=== PATIENT | female | born 1945 | race Caucasian/White ===

== ENCOUNTER 2025-03-29 22:42 | Inpatient (IN) | payer MEDICARE, BC ==
--- NOTE | 2025-03-29 23:07 | ED ---
General Adult HPI - General Chief complaint: Fall Stated complaint: Fall Time Seen by Provider: 03/29/25 22:53 Source: patient, EMS Mode of arrival: EMS Limitations: altered mental status - History of Present Illness Initial comments: This patient is a 79-year-old woman who is here to have evaluation for altered mental status and having fall in the shower. Most of the history comes from EMS who states that they were called to provide lift assistance for woman who had fallen in the shower. They were given history by the patient's believe [id number], who stated that the patient had been planning to have dinner with family tonight and then did not show up. They went to check on her and she seemed confused. She stated that she wanted to take a shower. She went into the bathroom and then fell and then was not able to get up. They had last seen her approximately 10-1/2 hours prior. EMS reported that the patient was not able to get up. She seemed confused. She did not have focal extremity weakness. When I interviewed the patient, she is denying complaints. She does seem confused, but is able to state that she is not having pain. No dyspnea. She has not had vomiting. -: unknown Severity scale (1-10): 0 Consistency: constant Improves with: none Associated Symptoms: confusion Treatments Prior to Arrival: none - Related Data Home Medications Medication Instructions Recorded Confirmed Levothyroxine Sodium [Synthroid] 75 mcg PO HS 03/30/25 03/30/25 Simvastatin [Zocor] 10 mg PO HS 03/30/25 03/30/25 Previous Rx's Medication Instructions Recorded Aspirin 81 mg PO DAILY 30 Days #30 tab 04/03/25 Losartan [Cozaar] 50 mg PO DAILY 30 Days #30 tab 04/03/25 amLODIPine [Norvasc] 10 mg PO DAILY 30 Days #30 tab 04/03/25 carvediloL [Coreg] 6.25 mg PO BID-W/MEALS 30 Days #60 04/03/25 tab Allergies Allergy/AdvReac Type Severity Reaction Status Date / Time No Known Allergies Allergy Verified 03/30/25 07:34 Review of Systems ROS Statement: Those systems with pertinent positive or pertinent negative responses have been documented in the HPI. ROS Other: All systems not noted in ROS Statement are negative. Limitations: ROS unobtainable due to patients medical condition Constitutional: Denies: fever Eyes: Denies: vision change Respiratory: Denies: cough, dyspnea Cardiovascular: Denies: chest pain Gastrointestinal: Denies: abdominal pain, vomiting Genitourinary: Denies: dysuria Musculoskeletal: Denies: back pain Neurological: Reports: confusion. Denies: headache Past Medical History Past Medical History: Unable to Obtain History of Any Multi-Drug Resistant Organisms: None Reported Past Surgical History: Unable to Obtain Past Psychological History: No Psychological Hx Reported Smoking Status: Never smoker Past Alcohol Use History: None Reported Past Drug Use History: None Reported General Exam Limitations: altered mental status General appearance: alert, in no apparent distress Head exam: Present: atraumatic, normocephalic Eye exam: Present: normal appearance. Absent: scleral icterus, conjunctival injection ENT exam: Present: normal oropharynx, mucous membranes moist Neck exam: Present: normal inspection, full ROM. Absent: tenderness, meningismus Respiratory exam: Present: normal lung sounds bilaterally. Absent: respiratory distress, wheezes, rales, rhonchi, stridor, chest wall tenderness, accessory muscle use Cardiovascular Exam: Present: regular rate, normal rhythm, normal heart sounds. Absent: systolic murmur, diastolic murmur, rubs, gallop GI/Abdominal exam: Present: soft. Absent: distended, tenderness, guarding, rebound, rigid, mass Extremities exam: Present: normal inspection, normal capillary refill. Absent: pedal edema, calf tenderness Back exam: Present: normal inspection. Absent: CVA tenderness (R), CVA tenderness (L), vertebral tenderness Neurological exam: Present: alert, CN II-XII intact. Absent: oriented X3 (The patient is oriented to person, she was able to recognize she is in a hospital, she cannot state the date.), motor sensory deficit Skin exam: Present: warm, dry, intact, normal color. Absent: rash Course Vital Signs 03/29/25 03/29/25 03/30/25 22:42 23:05 00:11 Temperature 99.0 F Pulse Rate 75 70 79 Pulse Rate [ Case Folder ] Respiratory 18 22 18 Rate Blood Pressure 126/73 129/64 169/73 Blood Pressure [Right Arm] O2 Sat by Pulse 100 100 100 Oximetry 03/30/25 03/30/25 03/30/25 01:12 02:00 06:00 Temperature Pulse Rate 80 85 78 Pulse Rate [ Case Folder ] Respiratory 18 16 17 Rate Blood Pressure 199/70 188/78 167/72 Blood Pressure [Right Arm] O2 Sat by Pulse 98 98 100 Oximetry 03/30/25 03/30/25 03/30/25 12:00 16:00 20:00 Temperature 98.8 F 98.7 F 97.9 F Pulse Rate Pulse Rate [ 70 65 56 L Case Folder ] Respiratory 17 19 18 Rate Blood Pressure Blood Pressure 162/57 150/55 118/54 [Right Arm] O2 Sat by Pulse 98 96 Oximetry 03/30/25 22:41 Temperature 98.0 F Pulse Rate Pulse Rate [ 68 Case Folder ] Respiratory 20 Rate Blood Pressure Blood Pressure 160/70 [Right Arm] O2 Sat by Pulse Oximetry EKG Findings - EKG Results: EKG: interpreted by ERMD, sinus rhythm (Rate 72 bpm), normal axis, normal ST/T - Blocks, [place], Hypertrophy, ST Abn: AV and intraventricular conduction: right bundle branch block (fixed/intermittent, complete/incomplete), left posterior fascicular block Medical Decision Making - Medical Decision Making The patient had chest x-ray that I interpreted as negative for acute infiltrate, pneumothorax, congestive heart failure. The patient had CT of the brain that I interpreted as negative for acute intracranial hemorrhage, mass effect or midline shift. Patient is 79-year-old woman here with altered mental status. The patient's initial workup remarkable only for mild elevation of troponin, elevated creatinine and also mild leukocytosis. The patient mental status has improved markedly and family member states she is pretty much at baseline. The patient is denying any symptoms suggestive of acute coronary syndrome. Patient will be admitted to have further evaluation as well as consultation by cardiology, neurology, nephrology. Was pt. sent in by a medical professional or institution (, PA, INVENTORY CONTROLLER, urgent care, hospital, or prison...) When possible be specific @ -[No] Did you speak to anyone other than the patient for history (EMS, parent, family, police, friend...)? What history was obtained from this source @ -[Patient's family member did contribute history as above Did you review nursing and triage notes (agree or disagree)? Why? @ -[I reviewed and agree with nursing and triage notes] Were old charts reviewed (outside hosp., previous admission, EMS record, old EKG, old radiological studies, urgent care reports/EKG's, prison records)? Report findings @ -[No old charts were reviewed] Differential Diagnosis (chest pain, altered mental status, abdominal pain women, abdominal pain men, vaginal bleeding, weakness, fever, dyspnea, syncope, headache, dizziness, GI bleed, back pain, seizure, CVA, palpatations, mental health, musculoskeletal)? @ -[Differential Altered Mental Status: Hypoglycemia, DKA, hypercapnia, ETOH, overdose, CO poisoning, trauma, myxedema coma, HTN encephalopathy, infection, encephalitis, psychosis, intercranial hemorrhage, hepatic encephalopathy, meningitis, CVA, this is not meant to be an all-inclusive list EKG interpreted by me (3pts min.). @ -[I interpreted as above] X-rays interpreted by me (1pt min.). @ -[I interpreted as above CT interpreted by me (1pt min.). @ -[I interpreted that as above U/S interpreted by me (1pt. min.). @ -[None done] What testing was considered but not performed or refused? (CT, X-rays, U/S, labs)? Why? @ -[None] What meds were considered but not given or refused? Why? @ -[None] Did you discuss the management of the patient with other professionals (professionals i.e. , PA, INVENTORY CONTROLLER, lab, RT, psych nurse, social media executive, buyer, teacher, employment security officer, manager of case management)? Give summary @ -[Case discussed with admitting physician and treatment recommendations Incorporated Was smoking cessation discussed for >3mins.? @ -[No] Was critical care preformed (if so, how long)? @ -[No] Were there social determinants of health that impacted care today? How? (Homelessness, low income, unemployed, alcoholism, drug addiction, transpo rtation, low edu. Level, literacy, decrease access to med. care, usp, rehab)? @ -[No] Was there de-escalation of care discussed even if they declined (Discuss DNR or withdrawal of care, Hospice)? DNR status @ -[No] What co-morbidities impacted this encounter? (DM, HTN, Smoking, COPD, CAD, Cancer, CVA, ARF, Chemo, Hep., AIDS, mental health diagnosis, sleep apnea, morbid obesity)? @ -[Hypertension and hypothyroidism Was patient admitted / discharged? Hospital course, mention meds given and rou te, prescriptions, significant lab abnormalities, going to OR and other pertinent info. @ -[As above Undiagnosed new problem with uncertain prognosis? @ -[No] Drug Therapy requiring intensive monitoring for toxicity (Heparin, Nitro, Insulin, Cardizem)? @ -[No] Were any procedures done? @ -[No] Diagnosis/symptom? @ -[Acute altered mental status Elevated troponin Acute kidney injury Acute, or Chronic, or Acute on Chronic? @ -[Acute Uncomplicated (without systemic symptoms) or Complicated (systemic symptoms)? @ -[Complicated by mental status change Side effects of treatment? @ -[No] Exacerbation, Progression, or Severe Exacerbation? @ -[No] Poses a threat to life or bodily function? How? (Chest pain, [place], [place], pneumonia, PE, COPD, DKA, ARF, appy, cholecystitis, CVA, Diverticulitis, Homicidal, Suicidal, threat to staff... and all critical care pts) @ -[Requires further specialist evaluation All treatments are based on ideal body weight as in ED triage - Lab Data Result diagrams: 04/01/25 06:06 04/03/25 07:22 Lab Results 03/29/25 03/29/25 03/29/25 Range/Units 23:08 23:08 23:08 WBC 12.14 H (4.50-10.00) 10*3/uL RBC 3.93 L (4.10-5.20) 10*6/uL Hgb 12.3 (12.0-15.0) g/dL Hct 35.4 L (37.2-46.3) % MCV 90.1 (80.0-97.0) fL MCH 31.3 (27.0-32.0) pg MCHC 34.7 (32.0-37.0) g/dL Plt Count 357 (140-440) 10*3/uL MPV 10.4 (9.5-12.2) fL Immature Gran % (Auto) 0.4 % Neutrophils % 83.2 % Lymphocytes % 7.6 % Monocytes % 8.2 % Eosinophils % 0.2 % Basophils % 0.4 % Immature Gran # 0.05 H (0.00-0.04) 10*3/uL Neutrophils # 10.11 H (1.80-7.70) 10*3/uL Lymphocytes # 0.92 (0.90-5.00) 10*3/uL Monocytes # 0.99 (0.20-1.00) 10*3/uL Eosinophils # 0.02 L (0.04-0.35) 10*3/uL Basophils # 0.05 (0.00-0.10) 10*3/uL PT 11.2 (10.0-12.5) sec INR 1.0 (<1.2) APTT 22.0 (22.0-30.0) sec Sodium 135 L (137-145) mmol/L Potassium 5.9 H (3.5-5.1) mmol/L Chloride 104 (98-107) mmol/L Carbon Dioxide 18 L (22-30) mmol/L Anion Gap 13 mmol/L BUN 47 H (7-17) mg/dL Creatinine 2.30 H (0.52-1.04) mg/dL Est GFR (CKD-EPI)AfAm 23 (>60 ml/min/1.73 sqM) Est GFR (CKD-EPI)NonAf 20 (>60 ml/min/1.73 sqM) Glucose 143 H (74-99) mg/dL POC Glucose (mg/dL) (70-110) mg/dL POC Glu Lead Manufacturing Technician ID Calcium 10.6 H (8.4-10.2) mg/dL Total Bilirubin 0.8 (0.2-1.3) mg/dL AST 32 (14-36) U/L ALT 21 (4-34) U/L Alkaline Phosphatase 82 (38-126) U/L Ammonia (<30) umol/L Creatine Kinase (30-135) U/L Troponin I (0.000-0.034) ng/mL Total Protein 7.2 (6.3-8.2) g/dL Albumin 4.2 (3.5-5.0) g/dL Urine Color Urine Appearance (Clear) Urine pH (5.0-8.0) Ur Specific [place] (1.001-1.035) Urine Protein (Negative) Urine Glucose (UA) (Negative) Urine Ketones (Negative) Urine Blood (Negative) Urine Nitrite (Negative) Urine Bilirubin (Negative) Urine Urobilinogen (<2.0) mg/dL Ur Leukocyte Esterase (Negative) Urine RBC (0-5) /hpf Urine WBC (0-5) /hpf Ur Squamous Epith Cells (0-4) /hpf Urine Bacteria (None) /hpf Hyaline Casts (0-2) /lpf Urine Mucus (None) /hpf Urine Opiates Screen (NotDetected) Ur Oxycodone Screen (NotDetected) Urine Methadone Screen (NotDetected) Ur Barbiturates Screen (NotDetected) U Tricyclic Antidepress (NotDetected) Ur Phencyclidine Scrn (NotDetected) Ur Amphetamines Screen (NotDetected) U Methamphetamines Scrn (NotDetected) U Benzodiazepines Scrn (NotDetected) Urine Cocaine Screen (NotDetected) U Marijuana (THC) Screen (NotDetected) Serum Alcohol <10 mg/dL 03/29/25 03/29/25 03/29/25 Range/Units 23:08 23:08 23:08 WBC (4.50-10.00) 10*3/uL RBC (4.10-5.20) 10*6/uL Hgb (12.0-15.0) g/dL Hct (37.2-46.3) % MCV (80.0-97.0) fL MCH (27.0-32.0) pg MCHC (32.0-37.0) g/dL Plt Count (140-440) 10*3/uL MPV (9.5-12.2) fL Immature Gran % (Auto) % Neutrophils % % Lymphocytes % % Monocytes % % Eosinophils % % Basophils % % Immature Gran # (0.00-0.04) 10*3/uL Neutrophils # (1.80-7.70) 10*3/uL Lymphocytes # (0.90-5.00) 10*3/uL Monocytes # (0.20-1.00) 10*3/uL Eosinophils # (0.04-0.35) 10*3/uL Basophils # (0.00-0.10) 10*3/uL PT (10.0-12.5) sec INR (<1.2) APTT (22.0-30.0) sec Sodium (137-145) mmol/L Potassium (3.5-5.1) mmol/L Chloride (98-107) mmol/L Carbon Dioxide (22-30) mmol/L Anion Gap mmol/L BUN (7-17) mg/dL Creatinine (0.52-1.04) mg/dL Est GFR (CKD-EPI)AfAm (>60 ml/min/1.73 sqM) Est GFR (CKD-EPI)NonAf (>60 ml/min/1.73 sqM) Glucose (74-99) mg/dL POC Glucose (mg/dL) (70-110) mg/dL POC Glu Lead Manufacturing Technician ID Calcium (8.4-10.2) mg/dL Total Bilirubin (0.2-1.3) mg/dL AST (14-36) U/L ALT (4-34) U/L Alkaline Phosphatase (38-126) U/L Ammonia <9 (<30) umol/L Creatine Kinase 425 H (30-135) U/L Troponin I 0.369 H* (0.000-0.034) ng/mL Total Protein (6.3-8.2) g/dL Albumin (3.5-5.0) g/dL Urine Color Urine Appearance (Clear) Urine pH (5.0-8.0) Ur Specific [place] (1.001-1.035) Urine Protein (Negative) Urine Glucose (UA) (Negative) Urine Ketones (Negative) Urine Blood (Negative) Urine Nitrite (Negative) Urine Bilirubin (Negative) Urine Urobilinogen (<2.0) mg/dL Ur Leukocyte Esterase (Negative) Urine RBC (0-5) /hpf Urine WBC (0-5) /hpf Ur Squamous Epith Cells (0-4) /hpf Urine Bacteria (None) /hpf Hyaline Casts (0-2) /lpf Urine Mucus (None) /hpf Urine Opiates Screen (NotDetected) Ur Oxycodone Screen (NotDetected) Urine Methadone Screen (NotDetected) Ur Barbiturates Screen (NotDetected) U Tricyclic Antidepress (NotDetected) Ur Phencyclidine Scrn (NotDetected) Ur Amphetamines Screen (NotDetected) U Methamphetamines Scrn (NotDetected) U Benzodiazepines Scrn (NotDetected) Urine Cocaine Screen (NotDetected) U Marijuana (THC) Screen (NotDetected) Serum Alcohol mg/dL 03/29/25 03/30/25 03/30/25 Range/Units 23:26 01:46 04:04 WBC (4.50-10.00) 10*3/uL RBC (4.10-5.20) 10*6/uL Hgb (12.0-15.0) g/dL Hct (37.2-46.3) % MCV (80.0-97.0) fL MCH (27.0-32.0) pg MCHC (32.0-37.0) g/dL Plt Count (140-440) 10*3/uL MPV (9.5-12.2) fL Immature Gran % (Auto) % Neutrophils % % Lymphocytes % % Monocytes % % Eosinophils % % Basophils % % Immature Gran # (0.00-0.04) 10*3/uL Neutrophils # (1.80-7.70) 10*3/uL Lymphocytes # (0.90-5.00) 10*3/uL Monocytes # (0.20-1.00) 10*3/uL Eosinophils # (0.04-0.35) 10*3/uL Basophils # (0.00-0.10) 10*3/uL PT (10.0-12.5) sec INR (<1.2) APTT (22.0-30.0) sec Sodium (137-145) mmol/L Potassium (3.5-5.1) mmol/L Chloride (98-107) mmol/L Carbon Dioxide (22-30) mmol/L Anion Gap mmol/L BUN (7-17) mg/dL Creatinine (0.52-1.04) mg/dL Est GFR (CKD-EPI)AfAm (>60 ml/min/1.73 sqM) Est GFR (CKD-EPI)NonAf (>60 ml/min/1.73 sqM) Glucose (74-99) mg/dL POC Glucose (mg/dL) 131 H (70-110) mg/dL POC Glu Lead Manufacturing Technician ID Desire Camille Calcium (8.4-10.2) mg/dL Total Bilirubin (0.2-1.3) mg/dL AST (14-36) U/L ALT (4-34) U/L Alkaline Phosphatase (38-126) U/L Ammonia (<30) umol/L Creatine Kinase (30-135) U/L Troponin I 2.940 H* (0.000-0.034) ng/mL Total Protein (6.3-8.2) g/dL Albumin (3.5-5.0) g/dL Urine Color Light Yellow Urine Appearance Clear (Clear) Urine pH 5.5 (5.0-8.0) Ur Specific [place] 1.015 (1.001-1.035) Urine Protein Trace H (Negative) Urine Glucose (UA) Negative (Negative) Urine Ketones Trace H (Negative) Urine Blood Moderate H (Negative) Urine Nitrite Negative (Negative) Urine Bilirubin Negative (Negative) Urine Urobilinogen <2.0 (<2.0) mg/dL Ur Leukocyte Esterase Negative (Negative) Urine RBC <1 (0-5) /hpf Urine WBC 1 (0-5) /hpf Ur Squamous Epith Cells <1 (0-4) /hpf Urine Bacteria Rare H (None) /hpf Hyaline Casts 13 H (0-2) /lpf Urine Mucus Rare H (None) /hpf Urine Opiates Screen Not Detected (NotDetected) Ur Oxycodone Screen Not Detected (NotDetected) Urine Methadone Screen Not Detected (NotDetected) Ur Barbiturates Screen Not Detected (NotDetected) U Tricyclic Antidepress Not Detected (NotDetected) Ur Phencyclidine Scrn Not Detected (NotDetected) Ur Amphetamines Screen Not Detected (NotDetected) U Methamphetamines Scrn Not Detected (NotDetected) U Benzodiazepines Scrn Not Detected (NotDetected) Urine Cocaine Screen Not Detected (NotDetected) U Marijuana (THC) Screen Not Detected (NotDetected) Serum Alcohol mg/dL Disposition Clinical Impression: Altered mental status, Elevated troponin, Acute kidney injury Disposition: ADMITTED IP TO THIS HOSP Condition: Stable Is patient prescribed a controlled substance at d/c from ED?: No
[2025-03-29 23:27] LABS: Glucose,Whole Blood 131 mg/dL (70-110)
[2025-03-29 23:35] LABS: Basophils # (A) 0.05 10*3/uL (0.00-0.10); Basophils % (A) 0.4 %; Eosinophils # (A) 0.02 10*3/uL (0.04-0.35); Eosinophils % (A) 0.2 %; HCT 35.4 % (37.2-46.3); HGB 12.3 g/dL (12.0-15.0); Lymphocytes # (A) 0.92 10*3/uL (0.90-5.00); Lymphocytes % (A) 7.6 %; MCH 31.3 pg (27.0-32.0); MCHC 34.7 g/dL (32.0-37.0); MCV 90.1 fL (80.0-97.0); Mean Platelet Volume 10.4 fL (9.5-12.2); Monocytes # (A) 0.99 10*3/uL (0.20-1.00); Monocytes % (A) 8.2 %; Neutrophils # (A) 10.11 10*3/uL (1.80-7.70); Neutrophils % (A) 83.2 %; Platelet Count 357 10*3/uL (140-440); RBC 3.93 10*6/uL (4.10-5.20); RDW 13.2 % (11.5-14.5); WBC 12.14 10*3/uL (4.50-10.00)
--- NOTE | 2025-03-29 23:51 | CT ---
EXAM: CT Head Without Intravenous Contrast CLINICAL HISTORY: ITS.REASON CT Reason: Altered mental status TECHNIQUE: Axial computed tomography images of the head/brain without intravenous contrast. CTDI is 49.2 mGy and DLP is 1098.4 mGy-cm. This CT exam was performed using one or more of the following dose reduction techniques: automated exposure control, adjustment of the mA and/or kV according to patient size, and/or use of iterative reconstruction technique. COMPARISON: No relevant prior studies available. FINDINGS: No acute intracranial hemorrhage. No midline shift or mass effect. The territorial cardona-white matter differentiation is maintained throughout. The ventricles and sulci are commensurate with age. The visualized orbits appear grossly unremarkable. The calvarium is intact. The visualized paranasal sinuses and mastoid air cells are grossly clear. IMPRESSION: No acute intracranial hemorrhage, midline shift, or mass effect.
[2025-03-29 23:53] LABS: Prothrombin Time 11.2 sec (10.0-12.5)
--- NOTE | 2025-03-29 23:53 | XR ---
EXAM: XR Chest, 2 Views CLINICAL HISTORY: ITS.REASON XR Reason: altered mental status TECHNIQUE: Frontal and lateral views of the chest. COMPARISON: No relevant prior studies available. FINDINGS: Lungs: Unremarkable. No consolidation. Pleural space: Unremarkable. No pneumothorax. Heart: Unremarkable. No cardiomegaly. Mediastinum: Unremarkable. Bones/joints: Unremarkable. IMPRESSION: No consolidation.
[2025-03-29 23:55] LABS: ALT 21 U/L (4-34); AST 32 U/L (14-36); African American GFR (CKD) 23 (>60 ml/min/1.73 sqM); Albumin 4.2 g/dL (3.5-5.0); Alcohol <10 mg/dL; Alkaline Phosphatase 82 U/L (38-126); Anion Gap 13 mmol/L; Blood Urea Nitrogen 47 mg/dL (7-17); Calcium 10.6 mg/dL (8.4-10.2); Carbon Dioxide 18 mmol/L (22-30); Chloride 104 mmol/L (98-107); Glucose 143 mg/dL (74-99); Non-African American GFR(CKD) 20 (>60 ml/min/1.73 sqM); Potassium 5.9 mmol/L (3.5-5.1); Sodium 135 mmol/L (137-145); Total Bilirubin 0.8 mg/dL (0.2-1.3); Total Protein 7.2 g/dL (6.3-8.2)
[2025-03-30] MEDS: SODIUM CHLORIDE 0.9% 500 ML 500 ML IV ONE (00:09)
[2025-03-30 03:33] LABS: Appearance,Urine Clear (Clear); Bacteria,Urine Rare /hpf; Bilirubin,Urine Negative (Negative); Blood,Urine Moderate (Negative); Color,Urine Light Yellow; Glucose,Urine (UA) Negative (Negative); Hyaline Casts,Urine 13 /lpf (0-2); Ketones,Urine Trace (Negative); Leukocyte Esterase,Urine Negative (Negative); Mucus,Urine Rare /hpf; Nitrite,Urine Negative (Negative); PH, Urine 5.5 (5.0-8.0); Protein,Urine Trace (Negative); RBC,Urine <1 /hpf (0-5); Specific Gravity,Urine 1.015 (1.001-1.035); Squamous Epithelial Cell,Urine <1 /hpf (0-4); Urobilinogen,Urine <2.0 mg/dL (<2.0); WBC,Urine 1 /hpf (0-5)
[2025-03-30 03:39] LABS: Amphetamine Screen,Urine Not Detected (NotDetected); Barbiturate Screen,Urine Not Detected (NotDetected); Benzodiazepines Screen,Urine Not Detected (NotDetected); Cocaine Screen,Urine Not Detected (NotDetected); Methadone Screen, Urine Not Detected (NotDetected); Opiate Screen,Urine Not Detected (NotDetected); Oxycodone Screen, Urine Not Detected (NotDetected); Phencyclidine Screen,Urine Not Detected (NotDetected); Tricyclic Antidepressant,Urine Not Detected (NotDetected); Urn Cannabinoid Scrn Not Detected (NotDetected)
[2025-03-30] MEDS ORDERED: NALOXONE 0.4 MG/ML 1 ML VIAL IV PRN (04:55)
[2025-03-30] MEDS ORDERED: ACETAMINOPHEN TAB 325 MG TAB PO PRN (04:55)
[2025-03-30] MEDS ORDERED: MAG HYDROX/AL HYDROX/SIMETH 30 ML CUP PO PRN (04:55)
[2025-03-30] MEDS ORDERED: HEPARIN SODIUM 1,000 UN/ML (10ML VL) IV PRN (05:36)
[2025-03-30] MEDS: SODIUM CHLORIDE 0.9% 1,000 ML IV SCH (05:46)
[2025-03-30] MEDS: HEPARIN SODIUM 1,000 UN/ML (10ML VL) IV ONE (05:49)
[2025-03-30] MEDS: HEPARIN SOD,PORK IN 0.45% NACL 25,000 UNIT in 0.45% NACL 1 250ML.BAG IV SCH (05:51)
[2025-03-30] MEDS ORDERED: FAMOTIDINE 20 MG TAB PO SCH (09:00)
[2025-03-30] MEDS: FAMOTIDINE 20 MG TAB PO SCH (10:47)
[2025-03-30] MEDS: lisinopriL 20 MG TAB PO SCH (10:47)
--- NOTE | 2025-03-30 11:00 | P.NPCON ---
History of Present Illness - Reason for Consult acute renal failure - History of Present Illness Patient is a 79-year-old female with history of hypertension, hypothyroidism and hyperlipidemia. She is admitted to the hospital with history of mental status changes, confusion and history of fall in the shower. EMS was called by her [id number] as they noticed that she had been confused. Patient apparently went into the shower and states that she passed out. She does not remember exactly what happened until she woke up with EMS. Blood pressure is not low Patient is maintained on JERMAIN inhibitors at home No history of nausea vomiting diarrhea or abdominal pain. No previous history of kidney diseases. Patient did admit to having taken NSAIDs few days ago for back pain. Serum creatinine is 2.3 mg/dL. Previous labs show serum creatinine of 1.3-1.6 in January and July 2024. Potassium was elevated at 5.9 mg/L. Currently maintained on IV fluids. Patient states she has been voiding well. Past Medical History Past Medical History: Unable to Obtain History of Any Multi-Drug Resistant Organisms: None Reported Past Surgical History: Unable to Obtain Past Psychological History: No Psychological Hx Reported Smoking Status: Never smoker Past Alcohol Use History: None Reported Past Drug Use History: None Reported Medications and Allergies Home Medications Medication Instructions Recorded Confirmed Type Benazepril HCl 40 mg PO HS 03/30/25 03/30/25 History Levothyroxine Sodium [Synthroid] 75 mcg PO HS 03/30/25 03/30/25 History Simvastatin [Zocor] 10 mg PO HS 03/30/25 03/30/25 History amLODIPine [Norvasc] 5 mg PO HS 03/30/25 03/30/25 History Allergies Allergy/AdvReac Type Severity Reaction Status Date / Time No Known Allergies Allergy Verified 03/30/25 07:34 Physical Exam Vitals: Vital Signs Temp Pulse Resp BP Pulse Ox 03/30/25 06:00 78 17 167/72 100 03/30/25 02:00 85 16 188/78 98 03/30/25 01:12 80 18 199/70 98 03/30/25 00:11 79 18 169/73 100 03/29/25 23:05 70 22 129/64 100 03/29/25 22:42 99.0 F 75 18 126/73 100 Intake and Output 03/29/25 03/30/25 03/30/25 22:59 06:59 14:59 Other: Weight 76 kg Patient is awake, comfortable, no acute distress. Examination of the heart S1 and S2 Examination of the lungs bilateral breath sounds are heard Abdomen is soft nontender Examination of lower extremities shows no evidence of edema SAAS ARCHITECT exam grossly intact Results - Lab Results Most recent lab results Calcium 10.6 mg/dL (8.4-10.2) H 03/29/25 23:08 03/29/25 23:08 03/29/25 23:08 Assessment and Plan Assessment: 1. Acute kidney injury, most likely ATN. UA shows moderate blood and trace protein. If renal function does not improve serologies will be ordered to rule out possible underlying acute GN. JERMAIN inhibitors on hold and patient is maintai ashli on IV fluids. 2. Chronic kidney disease stage III A most likely secondary to nephrosclerosis with baseline creatinine around 1.3 to 1.6 mg/dL 3. Syncope, undergoing workup. No evidence of hypotension 4. Hypertension maintained on JERMAIN inhibitors and calcium channel blockers 5. Hyperkalemia associated with acute kidney injury in the setting of use of JERMAIN inhibitors along with use of nonsteroidal anti-inflammatory agents 6. Nongap metabolic acidosis associated with acute kidney injury Plan: Change IV fluids to bicarb drip Discontinue Zestril Repeat labs in a.m. Check ultrasound of the kidneys Obtain serologies if renal function does not improve over the next 1 to 2 days. Thank you for the consultation. We will continue to follow the patient with you during her hospitalization.
[2025-03-30 11:22] LABS: Creatine Kinase 2471 U/L (30-135)
[2025-03-30] MEDS: DEXTROSE 5% IN WATER 1,000 ML with SODIUM BICARB (1 MEQ/ML) 150 ML IV SCH (11:28)
[2025-03-30] MEDS: carvediloL 6.25 MG TAB PO SCH (11:32)
[2025-03-30] MEDS: amLODIPine 5 MG TAB PO SCH (11:32)
--- NOTE | 2025-03-30 11:44 | P.CRDCN ---
History of Present Illness Consult date: 03/30/25 Reason for Consult (text): Elevated troponin History of present illness: This is 79-year-old female with past medical history of hypertension, hyperlipidemia, hypothyroidism. We have been asked to evaluate the patient for elevated troponins. 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 Patient states that she was in the shower and had a slip and fall. She states she sometimes gets dizzy when she gets up. She states she has been eating and drinking okay. She denies any fever or chills and no cough. Patient states that she was on the ground for about 4 hours. Patient states that she did have trouble with her memory but more so finding words and had a history of TIA years ago. She denies any chest pain or chest pressure. No pain into her neck or arms. She denies lower extremity edema. She denies history of smoking. No alc ohol abuse. Blood pressure 167/72, heart rate 78, pulse ox 100% on room air. Patient has been started on heparin drip and also was given dose of IV ceftriaxone. Patient seen in the ER waiting for bed on the cardiac stepdown unit. Dr. Madrigal discussed with patient findings and recommendations for a left heart catheterization but due to abnormal kidney function this will have to be carefully planned. Nephrology is on consult. -EKG: Sinus rhythm with right bundle branch block -Chest x-ray: No consolidation. -CT brain: No acute intracranial hemorrhage, midline shift or mass effect. -Laboratory studies: Troponin 0.369, 2.94. WBC 12.1, hemoglobin 12.3, sodium 135, potassium 5.9, BUN 47 creatinine 2.3. Urine drug screen negative. -Home cardiac medications: Amlodipine 5 mg at bedtime, benazepril 40 mg at bedtime, simvastatin 10 mg at bedtime, also on levothyroxine. Review Of Systems: At the time of my exam: CONSTITUTIONAL: Denies fever or chills. HEENT: Denies blurred vision, vision changes, or eye pain. Denies hemoptysis CARDIOVASCULAR: Denies chest pain. Denies orthopnea. Denies PND. Denies palpitations RESPIRATORY: Denies shortness of breath. GASTROINTESTINAL: Denies abdominal pain. Denies nausea or vomiting. HEMATOLOGIC: Denies bleeding disorders. GENITOURINARY: Denies any blood in urine. SKIN: Denies puritis. Denies rash. Physical examination: Gen: This is 79-year-old female in no acute distress VS: reviewed HEENT: Head is atraumatic, normocephalic. Pupils equal, round. Sclerae is anicteric. NECK: Supple. No JVD. Right sided carotid bruit. LUNGS: Clear to auscultation. No wheezes or rhonchi. No intercostal retractions. HEART: Regular rate and rhythm. No murmur. ABDOMEN: Soft No tenderness. EXTREMITIES: No pedal edema. No calf tenderness. NEUROLOGICAL: Patient is awake, alert and oriented x3. Assessment: NSTEMI Acute kidney injury Mental status changes with difficulty word finding Fall Rule out rhabdomyolysis Right-sided carotid bruit suspect carotid artery disease Hypertension Hyperlipidemia Hypothyroidism Plan: Resume patient's home cardiac medications and move to a.m. dosing Continue patient on heparin drip Obtain lipid panel, A1c, TSH, CK Obtain 2-D echocardiogram and Doppler study to assess cardiac structure and function Obtain carotid ultrasound Possible left heart catheterization once kidney function is improved Further recommendations to follow based upon clinical course Thank you kindly for this consultation. Nurse practitioner note has been reviewed, I agree with documented findings and plan of care. Patient was seen and examined. Past Medical History Past Medical History: Unable to Obtain History of Any Multi-Drug Resistant Organisms: None Reported Past Surgical History: Unable to Obtain Past Psychological History: No Psychological Hx Reported Smoking Status: Never smoker Past Alcohol Use History: None Reported Past Drug Use History: None Reported Medications and Allergies Home Medications Medication Instructions Recorded Confirmed Type Benazepril HCl 40 mg PO HS 03/30/25 03/30/25 History Levothyroxine Sodium [Synthroid] 75 mcg PO HS 03/30/25 03/30/25 History Simvastatin [Zocor] 10 mg PO HS 03/30/25 03/30/25 History amLODIPine [Norvasc] 5 mg PO HS 03/30/25 03/30/25 History Allergies Allergy/AdvReac Type Severity Reaction Status Date / Time No Known Allergies Allergy Verified 03/30/25 07:34 Physical Exam Vitals: Vital Signs Temp Pulse Resp BP Pulse Ox 03/30/25 06:00 78 17 167/72 100 03/30/25 02:00 85 16 188/78 98 03/30/25 01:12 80 18 199/70 98 03/30/25 00:11 79 18 169/73 100 03/29/25 23:05 70 22 129/64 100 03/29/25 22:42 99.0 F 75 18 126/73 100 Intake and Output 03/29/25 03/30/25 03/30/25 22:59 06:59 14:59 Other: Weight 76 kg Results 03/29/25 23:08 03/29/25 23:08 Cardiac Enzymes 03/29/25 03/29/25 03/30/25 Range/Units 23:08 23:08 04:04 AST 32 (14-36) U/L Troponin I 0.369 H* 2.940 H* (0.000-0.034) ng/mL Coagulation 03/29/25 Range/Units 23:08 PT 11.2 (10.0-12.5) sec APTT 22.0 (22.0-30.0) sec CBC 03/29/25 Range/Units 23:08 WBC 12.14 H (4.50-10.00) 10*3/uL RBC 3.93 L (4.10-5.20) 10*6/uL Hgb 12.3 (12.0-15.0) g/dL Hct 35.4 L (37.2-46.3) % Plt Count 357 (140-440) 10*3/uL Comprehensive Metabolic Panel 03/29/25 Range/Units 23:08 Sodium 135 L (137-145) mmol/L Potassium 5.9 H (3.5-5.1) mmol/L Chloride 104 (98-107) mmol/L Carbon Dioxide 18 L (22-30) mmol/L BUN 47 H (7-17) mg/dL Creatinine 2.30 H (0.52-1.04) mg/dL Glucose 143 H (74-99) mg/dL Calcium 10.6 H (8.4-10.2) mg/dL AST 32 (14-36) U/L ALT 21 (4-34) U/L Alkaline Phosphatase 82 (38-126) U/L Total Protein 7.2 (6.3-8.2) g/dL Albumin 4.2 (3.5-5.0) g/dL Current Medications Generic Name Dose Route Start Last Admin Trade Name Freq PRN Reason Stop Dose Admin Acetaminophen 650 mg 03/30/25 04:55 Acetaminophen Tab 325 Mg Tab PO Q6HR PRN Mild Pain or Fever > 100.5 Al Hydroxide/Mg Hydroxide 15 ml 03/30/25 04:55 Mag Hydrox/Al Hydrox/Simeth 30 Ml Cup PO Q6HR PRN Indigestion Famotidine 20 mg 03/30/25 09:00 Famotidine 20 Mg Tab PO BID TIO Heparin Sodium (Porcine) 0 unit 03/30/25 05:36 Heparin Sodium 1,000 Un/Ml (10ml Vl) IV PER PROTOCOL PRN Low PTT Protocol Sodium Chloride 1,000 mls @ 75 mls/hr 03/30/25 05:00 03/30/25 05:46 Saline 0.9% IV 75 mls/hr .[id number] TIO Administration Heparin Sodium/Sodium Chloride 250 mls @ 9.12 mls/hr 03/30/25 05:45 03/30/25 05:51 25,000 unit/ Sodium Chloride IV 12 units/kg/hr .Q24H TIO 9.12 mls/hr Administration Protocol 12 UNITS/KG/HR Naloxone HCl 0.2 mg 03/30/25 04:55 Naloxone 0.4 Mg/Ml 1 Ml Vial IV Q2M PRN Opioid Reversal Intake and Output 03/29/25 03/30/25 03/30/25 22:59 06:59 14:59 Other: Weight 76 kg 03/29/25 23:08 03/29/25 23:08
--- NOTE | 2025-03-30 14:49 | P.CNNES ---
History of Present Illness Consult date: 03/30/25 Requesting physician: Anuj Kinney Reason for Consult: altered mental status History of Present Illness: This is a 79-year-old woman who presents to the emergency department because of altered mental status. Patient [id number] is at bedside provide some of the history. Patient stated that yesterday she was in the shower and she fell out of the shower and she had the shower door and was on the bathroom floor for 4 hours and says she was weak. According to the [id number] the patient was supposed to be with over her house but she had not showed up so she was alarmed so she went to her house and had a copy of the zamora and then forced herself in the bathroom and she found that patient in the bathtub with the hot water running on her and she was not responsive. Per the [id number] the patient was not having any jerking of any extremity, rolling of her eyes or forced gaze deviation. Patient does not have any history of seizure. Patient does not have any tongue bite urinary or bowel incontinence during this episode. She does not recall what transpired. States she had a TIA in the past. She does have underlying diabetes mellitus, thiamine deficiency, thyroid issues, hypertension, hypercholesteremia. No history of cancer. Better today. Some of the workup during this hospital visit consisted of: Patient is afebrile Troponin got as high as high as 2.94 CK level is 425 Ammonia is less than 9 TSH is 1.[address] of the head is reported as no acute intracranial hemorrhage, midline shift or mass effect. I personally reviewed the CT and agree with the report. Review of Systems As per HPI. Past Medical History Past Medical History: Unable to Obtain History of Any Multi-Drug Resistant Organisms: None Reported Past Surgical History: Unable to Obtain Past Psychological History: No Psychological Hx Reported Smoking Status: Never smoker Past Alcohol Use History: None Reported Past Drug Use History: None Reported Medications and Allergies Home Medications Medication Instructions Recorded Confirmed Type Benazepril HCl 40 mg PO HS 03/30/25 03/30/25 History Levothyroxine Sodium [Synthroid] 75 mcg PO HS 03/30/25 03/30/25 History Simvastatin [Zocor] 10 mg PO HS 03/30/25 03/30/25 History amLODIPine [Norvasc] 5 mg PO HS 03/30/25 03/30/25 History Allergies Allergy/AdvReac Type Severity Reaction Status Date / Time No Known Allergies Allergy Verified 03/30/25 07:34 Physical Examination - Vital Signs Vital Signs: Vital Signs Temp Pulse Resp BP Pulse Ox 03/30/25 06:00 78 17 167/72 100 03/30/25 02:00 85 16 188/78 98 03/30/25 01:12 80 18 199/70 98 03/30/25 00:11 79 18 169/73 100 03/29/25 23:05 70 22 129/64 100 03/29/25 22:42 99.0 F 75 18 126/73 100 Intake and Output 03/29/25 03/30/25 03/30/25 22:59 06:59 14:59 Intake Total 54.264 Balance 54.264 Intake: Intake, IV Titration 54.264 Amount Heparin Sod,Pork in 0.45% 54.264 NaCl 25,000 unit In 0.45 % NaCl 1 250ml.bag @ 12 UNITS/KG/HR 9.12 mls/hr IV .Q24H [facility] Rx#: [id number] Other: Weight 76 kg GENERAL: The patient is lying in bed and is not in acute distress. NEUROLOGICAL: Higher mental function: The patient is awake, alert, oriented to self, place and time. Patient is following commands. No aphasia and no neglect. Cranial nerves: The pupils are round, equal and reactive to light and accommodation. Visual cook are full to confrontation throughout. Extraocular movement is intact no nystagmus is noted. Facial sensation is normal to touch throughout. The facial strength is normal throughout. Hearing is normal bilaterally to hand rub. Tongue is midline and moved [id number] without any difficulty. No dysarthria is noted. Shoulder shrug is normal bilaterally. Motor: The strength is 5 over 5 throughout. Normal tone and bulk. Cerebellum: Normal finger to nose bilaterally. Sensation: Sensation is normal to touch throughout. Reflexes (right/left):Refused because of pain. Plantars are mute bilaterally. Results - Laboratory Findings CBC and BMP: 03/29/25 23:08 03/29/25 23:08 Abnormal Lab Findings: Abnormal Labs 03/29/25 03/29/25 03/29/25 23:08 23:08 23:08 WBC 12.14 H RBC 3.93 L Hct 35.4 L Immature Gran # 0.05 H Neutrophils # 10.11 H Eosinophils # 0.02 L APTT Sodium 135 L Potassium 5.9 H Carbon Dioxide 18 L BUN 47 H Creatinine 2.30 H Glucose 143 H POC Glucose (mg/dL) Calcium 10.6 H Creatine Kinase Troponin I 0.369 H* Urine Protein Urine Ketones Urine Blood Urine Bacteria Hyaline Casts Urine Mucus 03/29/25 03/29/25 03/30/25 23:08 23:26 01:46 WBC RBC Hct Immature Gran # Neutrophils # Eosinophils # APTT Sodium Potassium Carbon Dioxide BUN Creatinine Glucose POC Glucose (mg/dL) 131 H Calcium Creatine Kinase 425 H Troponin I Urine Protein Trace H Urine Ketones Trace H Urine Blood Moderate H Urine Bacteria Rare H Hyaline Casts 13 H Urine Mucus Rare H 03/30/25 03/30/25 03/30/25 04:04 10:21 10:26 WBC RBC Hct Immature Gran # Neutrophils # Eosinophils # APTT 86.5 H Sodium Potassium Carbon Dioxide BUN Creatinine Glucose POC Glucose (mg/dL) Calcium Creatine Kinase 2471 H* Troponin I 2.940 H* Urine Protein Urine Ketones Urine Blood Urine Bacteria Hyaline Casts Urine Mucus Assessment and Plan Assessment: This is a 79-year-old woman who presents emergency department because of confusion. According to the ixzdbw-[id number]-grn she found her in the bathtub with a hot water running and she was not responding. In our ED her troponins elevated, she has acute kidney injury and CT of the head is unremarkable for any acute process. Altered mental status seems more metabolic encephalopathy. Rule out any acute or subacute stroke not seen on the CT especially with NSTEMI that can lead to strokes.--currently no focal deficit and mentation improved. NSTEMI Right sided carotid bruit rule out severe stenosis Acute kidney injury Hypertension Hyperlipidemia Hypothyroidism History of thiamine deficiency Plan: Carotid Duplex and 2D echo are ordered by the cardiology team I ordered MRI of the brain, EEG, Vitamin B12, folate level. Is on heparin drip started by ED team. Also is on lipitor. Nephrology is consulted Will defer the rest of the medical management to primary and other specialist Plan discussed with the patient and her [id number] who is at bedside Thank for the consultation Time with Patient: Greater than 30
--- NOTE | 2025-03-30 15:30 | US ---
EXAMINATION TYPE: US kidneys/renal and bladder DATE OF EXAM: 03/30/2025 COMPARISON: NONE CLINICAL INDICATION: Female, 79 years old with history of deejay; DEEJAY TECHNIQUE: Grayscale imaging of the bilateral kidneys and urinary bladder: FINDINGS: EXAM MEASUREMENTS: Right Kidney: 9.7x4.1x4.1 cm Left Kidney: 9.2x5.1x4.5 cm Right Kidney: No hydronephrosis or masses seen Left Kidney: No hydronephrosis or masses seen Bladder: wnl Bilateral Jets seen: Yes Incidental thickened endometrium up to 1.6cm IMPRESSION: 1. Normal renal ultrasound. 2. Prominent endometrial canal of 1.6 cm. Follow recommended. [facility], , 03/30/2025 3:27 PM
[2025-03-30 16:24] LABS: Chol/HDL Ratio 2.74 Ratio; LDL Cholesterol,Calculated 100.5 mg/dL (0.0-131.0); VLDL Calculation 14.96 mg/dL (5.00-40.00)
--- NOTE | 2025-03-30 17:04 | P.HPIM ---
History of Present Illness H&P Date: 03/30/25 Raiza Sneed, is a 79-year-old female who presented to [facility] emergency room with a chief complaint of mental status changes with confusion, patient states that she fell in the shower, at home, was not able to get up she was on the floor for 4 hours she was found by family member, when her family came in she was confused and was not able to recognize them, EMS were called and patient was brought into emergency room. She was evaluated in the emergency room vital examination on presentation revealed a temperature of 99.0 pulse 75 respiration 18 blood pressure 126/73 pu lse ox 100% on room air Laboratory data revealed a white blood count of 12.14 hemoglobin 12.3 platelet count 357 sodium 135 potassium 5.9 BUN 47 creatinine 2.3 troponin level 0.369 Testing in the emergency room revealed Patient was admitted to medical floor for further evaluation and treatment Past medical history is significant for On review of systems Past Medical History Past Medical History: Unable to Obtain History of Any Multi-Drug Resistant Organisms: None Reported Past Surgical History: Unable to Obtain Past Psychological History: No Psychological Hx Reported Smoking Status: Never smoker Past Alcohol Use History: None Reported Past Drug Use History: None Reported Medications and Allergies Home Medications Medication Instructions Recorded Confirmed Type Benazepril HCl 40 mg PO HS 03/30/25 03/30/25 History Levothyroxine Sodium [Synthroid] 75 mcg PO HS 03/30/25 03/30/25 History Simvastatin [Zocor] 10 mg PO HS 03/30/25 03/30/25 History amLODIPine [Norvasc] 5 mg PO HS 03/30/25 03/30/25 History Allergies Allergy/AdvReac Type Severity Reaction Status Date / Time No Known Allergies Allergy Verified 03/30/25 07:34 Physical Exam Vitals: Vital Signs Temp Pulse Resp BP Pulse Ox 03/30/25 06:00 78 17 167/72 100 03/30/25 02:00 85 16 188/78 98 03/30/25 01:12 80 18 199/70 98 03/30/25 00:11 79 18 169/73 100 03/29/25 23:05 70 22 129/64 100 03/29/25 22:42 99.0 F 75 18 126/73 100 Intake and Output 03/29/25 03/30/25 03/30/25 22:59 06:59 14:59 Other: Weight 76 kg In general patient is alert and oriented x 3 in no distress HEENT head normocephalic and atraumatic Neck is supple no JVD no goiter no lymphadenopathy no carotid bruit Chest examination is clear to auscultation no crackles no wheezing Cardiac exam reveals regular heart sounds S1 and S2 no gallops no murmurs Abdomen is soft nontender no organomegaly with normal bowel sounds Extremity exam reveals no edema no cyanosis or clubbing Neurological examination reveals no gross focal deficits Results CBC & Chem 7: 03/29/25 23:08 03/29/25 23:08 Labs: Abnormal Lab Results - Last 24 Hours (Table) 03/29/25 03/29/25 03/29/25 Range/Units 23:08 23:08 23:08 WBC 12.14 H (4.50-10.00) 10*3/uL RBC 3.93 L (4.10-5.20) 10*6/uL Hct 35.4 L (37.2-46.3) % Immature Gran # 0.05 H (0.00-0.04) 10*3/uL Neutrophils # 10.11 H (1.80-7.70) 10*3/uL Eosinophils # 0.02 L (0.04-0.35) 10*3/uL Sodium 135 L (137-145) mmol/L Potassium 5.9 H (3.5-5.1) mmol/L Carbon Dioxide 18 L (22-30) mmol/L BUN 47 H (7-17) mg/dL Creatinine 2.30 H (0.52-1.04) mg/dL Glucose 143 H (74-99) mg/dL POC Glucose (mg/dL) (70-110) mg/dL Calcium 10.6 H (8.4-10.2) mg/dL Creatine Kinase (30-135) U/L Troponin I 0.369 H* (0.000-0.034) ng/mL Urine Protein (Negative) Urine Ketones (Negative) Urine Blood (Negative) Urine Bacteria (None) /hpf Hyaline Casts (0-2) /lpf Urine Mucus (None) /hpf 03/29/25 03/29/25 03/30/25 Range/Units 23:08 23:26 01:46 WBC (4.50-10.00) 10*3/uL RBC (4.10-5.20) 10*6/uL Hct (37.2-46.3) % Immature Gran # (0.00-0.04) 10*3/uL Neutrophils # (1.80-7.70) 10*3/uL Eosinophils # (0.04-0.35) 10*3/uL Sodium (137-145) mmol/L Potassium (3.5-5.1) mmol/L Carbon Dioxide (22-30) mmol/L BUN (7-17) mg/dL Creatinine (0.52-1.04) mg/dL Glucose (74-99) mg/dL POC Glucose (mg/dL) 131 H (70-110) mg/dL Calcium (8.4-10.2) mg/dL Creatine Kinase 425 H (30-135) U/L Troponin I (0.000-0.034) ng/mL Urine Protein Trace H (Negative) Urine Ketones Trace H (Negative) Urine Blood Moderate H (Negative) Urine Bacteria Rare H (None) /hpf Hyaline Casts 13 H (0-2) /lpf Urine Mucus Rare H (None) /hpf 06// Range/Units 04:04 WBC (4.50-10.00) 10*3/uL RBC (4.10-5.20) 10*6/uL Hct (37.2-46.3) % Immature Gran # (0.00-0.04) 10*3/uL Neutrophils # (1.80-7.70) 10*3/uL Eosinophils # (0.04-0.35) 10*3/uL Sodium (137-145) mmol/L Potassium (3.5-5.1) mmol/L Carbon Dioxide (22-30) mmol/L BUN (7-17) mg/dL Creatinine (0.52-1.04) mg/dL Glucose (74-99) mg/dL POC Glucose (mg/dL) (70-110) mg/dL Calcium (8.4-10.2) mg/dL Creatine Kinase (30-135) U/L Troponin I 2.940 H* (0.000-0.034) ng/mL Urine Protein (Negative) Urine Ketones (Negative) Urine Blood (Negative) Urine Bacteria (None) /hpf Hyaline Casts (0-2) /lpf Urine Mucus (None) /hpf Assessment and Plan Plan: Acute kidney injury Underlying history of chronic kidney disease Underlying history of hypertension Underlying history of hyperlipidemia Acute metabolic acidosis Rhabdomyolysis Elevated troponin level Mental status changes with confusion This time patient was seen and examined Home medications reviewed and reordered Patient was started on IV heparin in the emergency room due to elevated troponin, continue at this time cardiology consultation was requested Patient was started on IV fluid with bicarb, urology consultation was requested Will continue to follow closely
--- NOTE | 2025-03-30 19:32 | US ---
EXAMINATION TYPE: US carotid duplex BILAT DATE OF EXAM: 03/30/2025 COMPARISON: NONE CLINICAL INDICATION: Female, 79 years old with history of syncope; syncope Additional History: R55 Syncope TECHNIQUE: Grayscale, color Doppler and spectral Doppler evaluation of the bilateral carotid systems and vertebral arteries. Indirect Doppler criteria was utilized. FINDINGS: EXAM MEASUREMENTS: RIGHT: Peak Systolic Velocity (PSV) cm/sec ----- Right CCA: 74.3 ----- Right ICA: 154.7 ----- Right ECA: 361.7 ICA/CCA ratio: 2.1 RIGHT: End Diastole cm/sec ----- Right CCA: 16.0 ----- Right ICA: 22.3 ----- Right ECA: 0.0 LEFT: Peak Systolic Velocity (PSV) cm/sec ----- Left CCA: 68.8 ----- Left ICA: 127.0 ----- Left ECA: 199.6 ICA/CCA ratio: 1.8 LEFT: End Diastole cm/sec ----- Left CCA: 11.7 ----- Left ICA: 20.4 ----- Left ECA: 18.4 VERTEBRALS (direction of flow): Right Vertebral: Antegrade Left Vertebral: Antegrade Rhythm: Normal CLIENT TECHNOLOGIES SPECIALIST NOTES: Plaque seen in bilateral bulbs. Right prox ICA appears elevated Color Doppler imaging shows patency with blood flow throughout the carotid artery. Spectral waveforms are within normal limits. IMPRESSION: Atheromatous plaquing present bilaterally. Narrowing less than 50% is present within the bilateral in ternal carotid arteries. There is some focal stenosis of the right external carotid artery Criteria for Assigning % of Stenosis / Diameter reduction (Estimation based on the indirect measurements of the internal carotid artery velocities (ICA PSV). 1. Normal (no stenosis)=ICA PSV < 180 cm/s: ratio < 2.0: ICA EDV<40 cm/s. 2. Less than 50% stenosis=ICA PSV < 180 cm/s: ratio < 2.0: ICA EDV<40 cm/s. 3. 50 to 69% stenosis=ICA PSV of 180 to 230 cm/s: ration 2.0 ? 4.0: ICA EDV 40-100 cm/s. PSV 125-180 cm/sec and ICA/CCA PSV Ratio ? 2.0 is also consistent with 50-69% stenosis 4. Greater than 70% stenosis to near occlusion= ICA PSV > 230 cm/s: ratio > 4.0: ICA EDV > 100 cm/s. 5. Near occlusion= ICA PSV velocities may be low or undetectable: variable ratio and ICA EDV. 6. Total occlusion=unable to detect flow. [facility], , 03/30/2025 7:30 PM
[2025-03-30] MEDS: ATORVASTATIN 10 MG TAB PO SCH (20:01)
[2025-03-30] MEDS: LEVOTHYROXINE 75 MCG TAB PO SCH (20:01)
[2025-03-30] MEDS ORDERED: lisinopriL 20 MG TAB PO SCH (21:00)
[2025-03-30] MEDS ORDERED: amLODIPine 5 MG TAB PO SCH (21:00)
[2025-03-30 23:17] LABS: Glucose,Whole Blood 99 mg/dL (70-110)
[2025-03-31 06:02] LABS: Glucose,Whole Blood 127 mg/dL (70-110)
[2025-03-31 06:57] LABS: Basophils # (A) 0.06 10*3/uL (0.00-0.10); Basophils % (A) 0.7 %; Eosinophils # (A) 0.27 10*3/uL (0.04-0.35); Eosinophils % (A) 3.4 %; HCT 35.2 % (37.2-46.3); HGB 11.7 g/dL (12.0-15.0); Lymphocytes # (A) 1.96 10*3/uL (0.90-5.00); Lymphocytes % (A) 24.4 %; MCH 30.2 pg (27.0-32.0); MCHC 33.2 g/dL (32.0-37.0); Mean Platelet Volume 10.5 fL (9.5-12.2); Monocytes # (A) 0.82 10*3/uL (0.20-1.00); Monocytes % (A) 10.2 %; Neutrophils # (A) 4.89 10*3/uL (1.80-7.70); Neutrophils % (A) 60.9 %; Platelet Count 332 10*3/uL (140-440); RBC 3.87 10*6/uL (4.10-5.20); RDW 13.5 % (11.5-14.5); WBC 8.03 10*3/uL (4.50-10.00)
[2025-03-31 07:09] LABS: Prothrombin Time 11.5 sec (10.0-12.5)
[2025-03-31 07:33] LABS: ALT 30 U/L (4-34); AST 75 U/L (14-36); African American GFR (CKD) 30 (>60 ml/min/1.73 sqM); Albumin 3.6 g/dL (3.5-5.0); Alkaline Phosphatase 90 U/L (38-126); Anion Gap 8 mmol/L; Blood Urea Nitrogen 37 mg/dL (7-17); Calcium 9.6 mg/dL (8.4-10.2); Carbon Dioxide 28 mmol/L (22-30); Chloride 100 mmol/L (98-107); Glucose 127 mg/dL (74-99); Non-African American GFR(CKD) 26 (>60 ml/min/1.73 sqM); Potassium 3.8 mmol/L (3.5-5.1); Sodium 136 mmol/L (137-145); Total Bilirubin 0.5 mg/dL (0.2-1.3); Total Protein 6.5 g/dL (6.3-8.2)
--- NOTE | 2025-03-31 11:11 | P.PN ---
Subjective Progress Note Date: 03/31/25 Raiza Sneed, is a 79-year-old female who presented to [facility] emergency room with a chief complaint of mental status changes with confusion, patient states that she fell in the shower, at home, was not able to get up she was on the floor for 4 hours she was found by family member, when her family came in she was confused and was not able to recognize them, EMS were called and patient was brought into emergency room. She was evaluated in the emergency room vital examination on presentation revealed a temperature of 99.0 pulse 75 respiration 18 blood pressure 126/73 pulse ox 100% on room air Laboratory data revealed a white blood count of 12.14 hemoglobin 12.3 platelet count 357 sodium 135 potassium 5.9 BUN 47 creatinine 2.3 troponin level 0.369 Testing in the emergency room revealed no acute intracranial hemorrhage midline shift or mass effect seen on CT of head. Chest x-ray showing no consolidation. Patient was admitted to medical floor for further evaluation and treatment Past medical history is significant for On review of systems On 03/31/2025 patient is alert and oriented x 3. Patient remains on heparin drip for elevated troponins. MRI and EEG has been ordered per neurology services 2D echo has been ordered.Carotid Doppler completed. Creatinine improving to 1.82 bun 37. Creatinine kindness 1325 this is trending down. Patient denies chest pain or shortness of breath. Patient denies nausea vomiting or diarrhea. Patient denies any urinary burning or frequency. Current vital signs temp 98.3, heart 73, respiratory rate 16, blood pressure 123/53 with pulse ox of 97% on room air Objective - Vital Signs Vital signs: Vital Signs Temp 98.3 F 03/31/25 07:37 Pulse 73 03/31/25 07:37 Resp 16 03/31/25 07:37 BP 123/53 03/31/25 07:37 Pulse Ox 97 03/31/25 07:37 FiO2 Intake & Output 03/30/25 03/31/25 03/31/25 18:59 06:59 18:59 Intake Total 694.264 388.38 Output Total 700 500 Balance 694.264 -700 -111.62 Weight 74 kg Intake: IV 640 Dextrose 5% in Water 1, 640 000 ml @ 80 mls/hr IV . [id number] TIO with Sodium Bicarb (1 Meq/ml) 150 ml Rx#:[id number] Intake, IV Titration 54.264 152.38 Amount Heparin Sod,Pork in 0.45% 54.264 152.38 NaCl 25,000 unit In 0.45 % NaCl 1 250ml.bag @ 12 UNITS/KG/HR 9.12 mls/hr IV .Q24H [facility] Rx#: [id number] Oral 236 Output: Urine 700 500 Other: Voiding Method Toilet Toilet # Voids 2 - Exam In general patient is alert and oriented x 3 in no distress HEENT head normocephalic and atraumatic Neck is supple no JVD no goiter no lymphadenopathy no carotid bruit Chest examination is clear to auscultation no crackles no wheezing Cardiac exam reveals regular heart sounds S1 and S2 no gallops no murmurs Abdomen is soft nontender no organomegaly with normal bowel sounds Extremity exam reveals no edema no cyanosis or clubbing Neurological examination reveals no gross focal deficits - Labs CBC & Chem 7: 03/31/25 05:29 03/31/25 05:36 Labs: Abnormal Lab Results - Last 24 Hours (Table) 03/30/25 03/30/25 03/30/25 Range/Units 10:21 10:21 10:26 RBC (4.10-5.20) 10*6/uL Hgb (12.0-15.0) g/dL Hct (37.2-46.3) % APTT 86.5 H (22.0-30.0) sec Sodium (137-145) mmol/L BUN (7-17) mg/dL Creatinine (0.52-1.04) mg/dL Glucose (74-99) mg/dL POC Glucose (mg/dL) (70-110) mg/dL Hemoglobin A1c 6.8 H (<=6.0) % AST (14-36) U/L Creatine Kinase 2471 H* (30-135) U/L HDL Cholesterol 66.50 H (40.00-60.00) mg/dL 03/30/25 03/31/25 03/31/25 Range/Units 17:07 05:29 05:29 RBC 3.87 L (4.10-5.20) 10*6/uL Hgb 11.7 L (12.0-15.0) g/dL Hct 35.2 L (37.2-46.3) % APTT 63.0 H 49.6 H (22.0-30.0) sec Sodium (137-145) mmol/L BUN (7-17) mg/dL Creatinine (0.52-1.04) mg/dL Glucose (74-99) mg/dL POC Glucose (mg/dL) (70-110) mg/dL Hemoglobin A1c (<=6.0) % AST (14-36) U/L Creatine Kinase (30-135) U/L HDL Cholesterol (40.00-60.00) mg/dL 03/31/25 03/31/25 03/31/25 Range/Units 05:36 05:36 06:00 RBC (4.10-5.20) 10*6/uL Hgb (12.0-15.0) g/dL Hct (37.2-46.3) % APTT (22.0-30.0) sec Sodium 136 L (137-145) mmol/L BUN 37 H (7-17) mg/dL Creatinine 1.82 H (0.52-1.04) mg/dL Glucose 127 H (74-99) mg/dL POC Glucose (mg/dL) 127 H (70-110) mg/dL Hemoglobin A1c (<=6.0) % AST 75 H (14-36) U/L Creatine Kinase 1325 H* (30-135) U/L HDL Cholesterol (40.00-60.00) mg/dL Assessment and Plan Plan: Acute kidney injury Underlying history of chronic kidney disease Underlying history of hypertension Underlying history of hyperlipidemia Acute metabolic acidosis Rhabdomyolysis Elevated troponin level Mental status changes with confusion This time patient was seen and examined Home medications reviewed and reordered Patient was started on IV heparin in the emergency room due to elevated troponin, continue at this time cardiology consultation was requested Patient was started on IV fluid with bicarb, neurology was requested MRI EEG and 2D echo ordered Carotid Doppler ordered and ultrasound renal bladder and kidneys Will continue to follow closely
[2025-03-31] MEDS: SODIUM CHLORIDE 0.9% 1,000 ML IV SCH (12:34)
[2025-03-31 12:35] LABS: Glucose,Whole Blood 109 mg/dL (70-110)
--- NOTE | 2025-03-31 14:47 | P.PN ---
Subjective Progress Note Date: 03/31/25 Reason for Consult (text): Elevated troponin History of present illness: This is 79-year-old female with past medical history of hypertension, hyperlipi demia, hypothyroidism. We have been asked to evaluate the patient for elevated troponins. 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 Patient states that she was in the shower and had a slip and fall. She states she sometimes gets dizzy when she gets up. She states she has been eating and drinking okay. She denies any fever or chills and no cough. Patient states that she was on the ground for about 4 hours. Patient states that she did have trouble with her memory but more so finding words and had a history of TIA years ago. She denies any chest pain or chest pressure. No pain into her neck or arms. She denies lower extremity edema. She denies history of smoking. No alcohol abuse. Blood pressure 167/72, heart rate 78, pulse ox 100% on room air. Patient has been started on heparin drip and also was given dose of IV ceftriaxone. Patient seen in the ER waiting for bed on the cardiac stepdown unit. Dr. Madrigal discussed with patient findings and recommendations for a left heart catheterization but due to abnormal kidney function this will have to be carefully planned. N ephrology is on consult. -EKG: Sinus rhythm with right bundle branch block -Chest x-ray: No consolidation. -CT brain: No acute intracranial hemorrhage, midline shift or mass effect. -Laboratory studies: Troponin 0.369, 2.94. WBC 12.1, hemoglobin 12.3, sodium 135, potassium 5.9, BUN 47 creatinine 2.3. Urine drug screen negative. -Home cardiac medications: Amlodipine 5 mg at bedtime, benazepril 40 mg at bedtime, simvastatin 10 mg at bedtime, also on levothyroxine. 03/31 Patient seen and examined on the cardiac stepdown unit. Blood pressure 156/69, heart rate 62, pulse ox 97% on room air. Repeat blood work reveals WBC 8, hemoglobin 9.7, sodium 136, BUN 37, creatinine 1.82, potassium 3.8. CK 1325. Echocardiogram is taken report is pending. Patient has been continued on heparin drip which we will decide whether this can be discontinued after the echocardiogram has been reported. Carotid ultrasound revealed narrowing less than 50% in bilateral internal carotid arteries. Triglycerides 74, cholesterol 182, LDL 100. TSH 1.37. Hemoglobin A1c is 6.8. Physical examination: Gen: This is 79-year-old female in no acute distress VS: reviewed HEENT: Head is atraumatic, normocephalic. Pupils equal, round. Sclerae is anicteric. NECK: Supple. No JVD. Right sided carotid bruit. LUNGS: Clear to auscultation. No wheezes or rhonchi. No intercostal retractions. HEART: Regular rate and rhythm. No murmur. ABDOMEN: Soft No tenderness. EXTREMITIES: No pedal edema. No calf tenderness. NEUROLOGICAL: Patient is awake, alert and oriented x3. Assessment: NSTEMI Acute kidney injury Mental status changes with difficulty word finding Fall Rhabdomyolysis Right-sided carotid bruit suspect carotid artery disease Hypertension Hyperlipidemia Hypothyroidism Plan: Resume patient's home cardiac medications and move to a.m. dosing Continue patient on heparin drip, will consider discontinuing once echocardiogram is reported Obtain 2-D echocardiogram and Doppler study to assess cardiac structure and function Possible left heart catheterization once kidney function is improved Further recommendations to follow based upon clinical course Nurse practitioner note has been reviewed, I agree with documented findings and plan of care. Patient was seen and examined. Objective - Vital Signs Vital signs: Vital Signs Temp 98.0 F 03/31/25 11:20 Pulse 62 03/31/25 11:20 Resp 18 03/31/25 11:20 BP 156/69 03/31/25 11:20 Pulse Ox 97 03/31/25 11:20 FiO2 Intake & Output 03/30/25 03/31/25 03/31/25 18:59 06:59 18:59 Intake Total 694.264 388.38 Output Total 700 500 Balance 694.264 -700 -111.62 Weight 74 kg Intake: IV 640 Dextrose 5% in Water 1, 640 000 ml @ 80 mls/hr IV . [id number] TIO with Sodium Bicarb (1 Meq/ml) 150 ml Rx#:[id number] Intake, IV Titration 54.264 152.38 Amount Heparin Sod,Pork in 0.45% 54.264 152.38 NaCl 25,000 unit In 0.45 % NaCl 1 250ml.bag @ 12 UNITS/KG/HR 9.12 mls/hr IV .Q24H TIO Rx#: [id number] Oral 236 Output: Urine 700 500 Other: Voiding Method Toilet Toilet # Voids 2 - Labs CBC & Chem 7: 03/31/25 05:29 03/31/25 05:36 Labs: Abnormal Lab Results - Last 24 Hours (Table) 03/30/25 03/30/25 03/30/25 Range/Units 10:21 10:21 17:07 RBC (4.10-5.20) 10*6/uL Hgb (12.0-15.0) g/dL Hct (37.2-46.3) % APTT 63.0 H (22.0-30.0) sec Sodium (137-145) mmol/L BUN (7-17) mg/dL Creatinine (0.52-1.04) mg/dL Glucose (74-99) mg/dL POC Glucose (mg/dL) (70-110) mg/dL Hemoglobin A1c 6.8 H (<=6.0) % AST (14-36) U/L Creatine Kinase 2471 H* (30-135) U/L HDL Cholesterol 66.50 H (40.00-60.00) mg/dL 03/31/25 03/31/25 03/31/25 Range/Units 05:29 05:29 05:36 RBC 3.87 L (4.10-5.20) 10*6/uL Hgb 11.7 L (12.0-15.0) g/dL Hct 35.2 L (37.2-46.3) % APTT 49.6 H (22.0-30.0) sec Sodium 136 L (137-145) mmol/L BUN 37 H (7-17) mg/dL Creatinine 1.82 H (0.52-1.04) mg/dL Glucose 127 H (74-99) mg/dL POC Glucose (mg/dL) (70-110) mg/dL Hemoglobin A1c (<=6.0) % AST 75 H (14-36) U/L Creatine Kinase (30-135) U/L HDL Cholesterol (40.00-60.00) mg/dL 03/31/25 03/31/25 Range/Units 05:36 06:00 RBC (4.10-5.20) 10*6/uL Hgb (12.0-15.0) g/dL Hct (37.2-46.3) % APTT (22.0-30.0) sec Sodium (137-145) mmol/L BUN (7-17) mg/dL Creatinine (0.52-1.04) mg/dL Glucose (74-99) mg/dL POC Glucose (mg/dL) 127 H (70-110) mg/dL Hemoglobin A1c (<=6.0) % AST (14-36) U/L Creatine Kinase 1325 H* (30-135) U/L HDL Cholesterol (40.00-60.00) mg/dL Microbiology - Last 24 Hours (Table) 03/30/25 01:46 Blood Culture - Preliminary Blood
[2025-03-31] MEDS: ASPIRIN 81 MG PO SCH (16:26)
[2025-03-31 16:27] LABS: Glucose,Whole Blood 135 mg/dL (70-110)
--- NOTE | 2025-03-31 17:32 | CA ---
Transthoracic Echo Report Name: Raiza Sneed Age: 79 Gender: F : 1945 Exam Date: 03/30/2025 10:24 Exam Location: [place] [facility] Ht (in): 66 Wt (lb): 167 Ordering Physician: Yaima Segovia Attending/Referring Phys: [id number], Luca Outsole Molder Amanda Villeda RDCS Procedure CPT: Indications: LVF Cardiac Hx: Technical Quality: Fair Contrast 1: Total Dose (mL): Contrast 2: Total Dose (mL): MEASUREMENTS (Male / Female) Normal Values 2D ECHO LV Diastolic Diameter PLAX 4.8 cm 4.2 - 5.9 / 3.9 - 5.3 cm LV Systolic Diameter PLAX 3.6 cm IVS Diastolic Thickness 1.1 cm 0.6 - 1.0 / 0.6 - 0.9 cm LVPW Diastolic Thickness 1.1 cm 0.6 - 1.0 / 0.6 - 0.9 cm LV Relative Wall Thickness 0.5 RV Internal Dim ED PLAX 2.5 cm LVOT Diameter 1.6 cm LA Systolic Diameter LX 3.4 cm 3.0 - 4.0 / 2.7 - 3.8 cm LV Diastolic Volume MOD BP 96.1 cm??? 67 - 155 / 56 - 104 cm??? LV Systolic Volume MOD BP 40.4 cm??? 22 - 58 / 19 - 49 cm??? LV Ejection Fraction MOD BP 57.9 % >= 55 % LV Cardiac Index MOD BP 2145.5 cm???/min???m??? LV Diastolic Volume MOD 4C 81.3 cm??? LV Systolic Volume MOD 4C 31.8 cm??? LV Ejection Fraction MOD 4C 60.9 % LV Cardiac Index MOD 4C 1906.7 cm???/min???m??? LV Diastolic Length 4C 8.4 cm LV Systolic Length 4C 6.9 cm LV Diastolic Volume MOD 2C 112.2 cm??? LV Systolic Volume MOD 2C 50.7 cm??? LV Ejection Fraction MOD 2C 54.8 % LV Cardiac Index MOD 2C 2367.8 cm???/min???m??? LV Diastolic Length 2C 8.2 cm LV Systolic Length 2C 6.6 cm LA Volume 33.6 cm??? 18 - 58 / 22 - 52 cm??? LA Volume Index 17.7 cm???/m??? 16 - 28 cm???/m??? DOPPLER MV Area PHT 2.8 cm??? Mitral E Point Velocity 79.8 cm/s Mitral A Point Velocity 137.2 cm/s Mitral E to A Ratio 0.6 MV Deceleration Time 272.5 ms TR Peak Velocity 146.5 cm/s TR Peak Gradient 8.6 mmHg FINDINGS Left Ventricle Left ventricular ejection fraction is estimated at 55-60%. Mildly increased septal wall thickness. Mildly increased posterior wall thickness. Normal left ventricular systolic function with no obvious regional wall motion abnormalities. Left ventricular cavity size normal. Right Ventricle Normal right ventricular size and function. Right ventricular systolic pressure within normal limits. Right Atrium Normal right atrial size. Left Atrium Normal left atrial size. Mitral Valve Mitral annular calcification. No mitral stenosis. No mitral regurgitation. Aortic Valve Trileaflet aortic valve. Diffuse thickening (sclerosis) of the aortic valve cusps without reduced excursion. No aortic regurgitation. Tricuspid Valve Structurally normal tricuspid valve. No tricuspid stenosis. Trace tricuspid regurgitation. Pulmonic Valve Pulmonic valve not well visualized. No pulmonic stenosis. Trace pulmonic regurgitation. Pericardium No pleural effusion. Aorta Normal size aortic root and proximal ascending aorta. CONCLUSIONS LVEF 55% Mild concentric LVH No obvious regional wall motion abnormality Normal RV size and systolic function. Normal RVSP No significant valvular dysfunction Previewed by: Dr Satnam Ely (Electronically Signed) Final Date: 31 March 2025 17:31
[2025-03-31 19:59] LABS: Glucose,Whole Blood 170 mg/dL (70-110)
--- NOTE | 2025-03-31 21:23 | EEG ---
ELECTROENCEPHALOGRAM REPORT CLINICAL HISTORY: This is a 79-year-old woman with altered mental status. The video EEG is obtained to evaluate for seizure epileptiform activity. RELEVANT MEDICATION: This patient is not on any antiseizure medication. EEG TYPE: This is a routine 21-channel EEG with video using the 10/20 electrode system. DESCRIPTION: Wakefulness is obtained. The background consists of [id number] voltage of 10 hertz activity intermixed with delta activity. There is no physiological stage 2 sleep architecture. There is no focal slowing. INTERICTAL AND ICTAL: None. ACTIVATION PROCEDURE: Photic stimulation did not evoke posterior driving response. There is no abnormality during the photic stimulation. Hyperventilation is not performed. CLINICAL INTERPRETATION: This is an abnormal routine EEG during awake state. The background slowing is suggestive of mild encephalopathy. There is no focal slowing, epileptiform discharge, or seizure on the EEG. A normal routine EEG does not rule out underlying epilepsy. Clinical correlation is recommended. DAILY / SUNNI: [id number] / MTDD
[2025-04-01 07:24] LABS: Basophils # (A) 0.05 10*3/uL (0.00-0.10); Basophils % (A) 0.7 %; Eosinophils # (A) 0.47 10*3/uL (0.04-0.35); HCT 35.1 % (37.2-46.3); HGB 11.5 g/dL (12.0-15.0); Lymphocytes # (A) 2.02 10*3/uL (0.90-5.00); Lymphocytes % (A) 29.9 %; MCH 30.4 pg (27.0-32.0); MCHC 32.8 g/dL (32.0-37.0); MCV 92.9 fL (80.0-97.0); Mean Platelet Volume 10.5 fL (9.5-12.2); Monocytes % (A) 10.4 %; Neutrophils % (A) 51.9 %; Platelet Count 317 10*3/uL (140-440); RBC 3.78 10*6/uL (4.10-5.20); RDW 13.3 % (11.5-14.5); WBC 6.75 10*3/uL (4.50-10.00)
[2025-04-01 07:42] LABS: ALT 29 U/L (4-34); AST 54 U/L (14-36); African American GFR (CKD) 41 (>60 ml/min/1.73 sqM); Albumin 3.5 g/dL (3.5-5.0); Alkaline Phosphatase 60 U/L (38-126); Anion Gap 8 mmol/L; Blood Urea Nitrogen 38 mg/dL (7-17); Calcium 9.2 mg/dL (8.4-10.2); Carbon Dioxide 26 mmol/L (22-30); Chloride 105 mmol/L (98-107); Glucose 119 mg/dL (74-99); Non-African American GFR(CKD) 35 (>60 ml/min/1.73 sqM); Potassium 4.6 mmol/L (3.5-5.1); Sodium 139 mmol/L (137-145); Total Bilirubin 0.5 mg/dL (0.2-1.3); Total Protein 6.3 g/dL (6.3-8.2)
[2025-04-01] MEDS: amLODIPine 10 MG TAB PO SCH (08:23)
--- NOTE | 2025-04-01 09:25 | P.PN ---
Subjective Progress Note Date: 04/01/25 Reason for Consult (text): Elevated troponin History of present illness: This is 79-year-old female with past medical history of hypertension, hyperlipi demia, hypothyroidism. We have been asked to evaluate the patient for elevated troponins. Patient does not follow with a marine architect. Patient states that she was in the shower and had a slip and fall. She states she sometimes gets dizzy when she gets up. She states she has been eating and drinking okay. She denies any fever or chills and no cough. Patient states that she was on the ground for about 4 hours. Patient states that she did have trouble with her memory but more so finding words and had a history of TIA years ago. She denies any chest pain or chest pressure. No pain into her neck or arms. She denies lower extremity edema. She denies history of smoking. No alcohol abuse. Blood pressure 167/72, heart rate 78, pulse ox 100% on room air. Patient has been started on heparin drip and also was given dose of IV ceftriaxone. Patient seen in the ER waiting for bed on the cardiac stepdown unit. Dr. Madrigal discussed with patient findings and recommendations for a left heart catheterization but due to abnormal kidney function this will have to be carefully planned. N ephrology is on consult. -EKG: Sinus rhythm with right bundle branch block -Chest x-ray: No consolidation. -CT brain: No acute intracranial hemorrhage, midline shift or mass effect. -Laboratory studies: Troponin 0.369, 2.94. WBC 12.1, hemoglobin 12.3, sodium 135, potassium 5.9, BUN 47 creatinine 2.3. Urine drug screen negative. -Home cardiac medications: Amlodipine 5 mg at bedtime, benazepril 40 mg at bedtime, simvastatin 10 mg at bedtime, also on levothyroxine. 03/31 Patient seen and examined on the cardiac stepdown unit. Blood pressure 156/69, heart rate 62, pulse ox 97% on room air. Repeat blood work reveals WBC 8, hemoglobin 9.7, sodium 136, BUN 37, creatinine 1.82, potassium 3.8. CK 1325. Echocardiogram is taken report is pending. Patient has been continued on heparin drip which we will decide whether this can be discontinued after the echocardiogram has been reported. Carotid ultrasound revealed narrowing less than 50% in bilateral internal carotid arteries. Triglycerides 74, cholesterol 182, LDL 100. TSH 1.37. Hemoglobin A1c is 6.8. 04/01 Patient seen and examined. Blood pressure readings have been elevated for which amlodipine will be increased. Patient is off heparin drip. Echocardiogram reveals EF of 55%, mild concentric LVH, no significant valvular dysfunction. Discussed possibility of cardiac catheterization or stress test. Patient does not seem to be interested in moving forward with this at this time. Her kidney function remains elevated. Today's lab work is not available at the time of this dictation. Physical examination: Gen: This is 79-year-old female in no acute distress VS: reviewed HEENT: Head is atraumatic, normocephalic. Pupils equal, round. Sclerae is anicteric. NECK: Supple. No JVD. Right sided carotid bruit. LUNGS: Clear to auscultation. No wheezes or rhonchi. No intercostal retractions. HEART: Regular rate and rhythm. No murmur. ABDOMEN: Soft No tenderness. EXTREMITIES: No pedal edema. No calf tenderness. NEUROLOGICAL: Patient is awake, alert and oriented x3. Assessment: NSTEMI Acute kidney injury Mental status changes with difficulty word finding Fall Rhabdomyolysis Right-sided carotid bruit suspect carotid artery disease Hypertension Hyperlipidemia Hypothyroidism Plan: Continue patient on aspirin, atorvastatin, Coreg Increase amlodipine to 10 mg daily for blood pressure control Possible left heart catheterization once kidney function is improved, or may consider stress testing Further recommendations to follow based upon clinical course Nurse practitioner note has been reviewed, I agree with documented findings and plan of care. Patient was seen and examined. Objective - Vital Signs Vital signs: Vital Signs Temp 98.0 F 04/01/25 04:00 Pulse 69 04/01/25 04:00 Resp 18 04/01/25 04:00 BP 149/69 04/01/25 04:00 Pulse Ox 95 04/01/25 04:00 FiO2 Intake & Output 03/31/25 04/01/25 04/01/25 18:59 06:59 18:59 Intake Total 829.853 Output Total 500 Balance 329.853 Weight 74 kg Intake: Intake, IV Titration 235.853 Amount Heparin Sod,Pork in 0.45% 235.853 NaCl 25,000 unit In 0.45 % NaCl 1 250ml.bag @ 12 UNITS/KG/HR 9.12 mls/hr IV .Q24H [facility] Rx#: [id number] Oral 594 Output: Urine 500 Other: Voiding Method Toilet Toilet # Voids 3 1 - Labs CBC & Chem 7: 04/01/25 06:06 04/01/25 06:06 Labs: Abnormal Lab Results - Last 24 Hours (Table) 03/31/25 03/31/25 03/31/25 Range/Units 05:36 05:36 16:25 Sodium 136 L (137-145) mmol/L BUN 37 H (7-17) mg/dL Creatinine 1.82 H (0.52-1.04) mg/dL Glucose 127 H (74-99) mg/dL POC Glucose (mg/dL) 135 H (70-110) mg/dL AST 75 H (14-36) U/L Creatine Kinase 1325 H* (30-135) U/L 03/31/25 Range/Units 19:58 Sodium (137-145) mmol/L BUN (7-17) mg/dL Creatinine (0.52-1.04) mg/dL Glucose (74-99) mg/dL POC Glucose (mg/dL) 170 H (70-110) mg/dL AST (14-36) U/L Creatine Kinase (30-135) U/L Microbiology - Last 24 Hours (Table) 03/30/25 01:46 Blood Culture - Preliminary Blood
--- NOTE | 2025-04-01 10:32 | P.PN ---
Subjective Progress Note Date: 04/01/25 Raiza Sneed, is a 79-year-old female who presented to [facility] emergency room with a chief complaint of mental status changes with confusion, patient states that she fell in the shower, at home, was not able to get up she was on the floor for 4 hours she was found by family member, when her family came in she was confused and was not able to recognize them, EMS were called and patient was brought into emergency room. She was evaluated in the emergency room vital examination on presentation revealed a temperature of 99.0 pulse 75 respiration 18 blood pressure 126/73 pulse ox 100% on room air Laboratory data revealed a white blood count of 12.14 hemoglobin 12.3 platelet count 357 sodium 135 potassium 5.9 BUN 47 creatinine 2.3 troponin level 0.369 Testing in the emergency room revealed no acute intracranial hemorrhage midline shift or mass effect seen on CT of head. Chest x-ray showing no consolidation. Patient was admitted to medical floor for further evaluation and treatment Past medical history is significant for On review of systems On 03/31/2025 patient is alert and oriented x 3. Patient remains on heparin drip for elevated troponins. MRI and EEG has been ordered per neurology services 2D echo has been ordered.Carotid Doppler completed. Creatinine improving to 1.82 bun 37. Creatinine kindness 1325 this is trending down. Patient denies chest pain or shortness of breath. Patient denies nausea vomiting or diarrhea. Patient denies any urinary burning or frequency. Current vital signs temp 98.3, heart 73, respiratory rate 16, blood pressure 123/53 with pulse ox of 97% on room air On 04/01/2025 patient is alert and oriented x 3. Patient denies chest pain or shortness of breath. Patient denies nausea vomiting or diarrhea. Patient denies any urinary burning or frequency. Current vital signs temp 98.0, heart 69, respiratory rate 18, blood pressure 149/69 with pulse ox of 95% on room air. Possible plans for heart catheterization per cardiology MRI still ordered per neurology. Creatinine 1.44 bun 38 Objective - Vital Signs Vital signs: Vital Signs Temp 98.0 F 04/01/25 08:17 Pulse 73 04/01/25 08:17 Resp 16 04/01/25 08:17 BP 164/62 04/01/25 08:17 Pulse Ox 98 04/01/25 08:17 FiO2 Intake & Output 03/31/25 04/01/25 04/01/25 18:59 06:59 18:59 Intake Total 829.853 236 Output Total 500 300 Balance 329.853 -64 Weight 74 kg Intake: Intake, IV Titration 235.853 Amount Heparin Sod,Pork in 0.45% 235.853 NaCl 25,000 unit In 0.45 % NaCl 1 250ml.bag @ 12 UNITS/KG/HR 9.12 mls/hr IV .Q24H [facility] Rx#: [id number] Oral 594 236 Output: Urine 500 300 Other: Voiding Method Toilet Toilet Toilet # Voids 3 1 - Exam In general patient is alert and oriented x 3 in no distress HEENT head normocephalic and atraumatic Neck is supple no JVD no goiter no lymphadenopathy no carotid bruit Chest examination is clear to auscultation no crackles no wheezing Cardiac exam reveals regular heart sounds S1 and S2 no gallops no murmurs Abdomen is soft nontender no organomegaly with normal bowel sounds Extremity exam reveals no edema no cyanosis or clubbing Neurological examination reveals no gross focal deficits - Labs CBC & Chem 7: 04/01/25 06:06 04/01/25 06:06 Labs: Abnormal Lab Results - Last 24 Hours (Table) 03/31/25 03/31/25 03/31/25 Range/Units 05:36 16:25 19:58 RBC (4.10-5.20) 10*6/uL Hgb (12.0-15.0) g/dL Hct (37.2-46.3) % Eosinophils # (0.04-0.35) 10*3/uL BUN (7-17) mg/dL Creatinine (0.52-1.04) mg/dL Glucose (74-99) mg/dL POC Glucose (mg/dL) 135 H 170 H (70-110) mg/dL AST (14-36) U/L Creatine Kinase 1325 H* (30-135) U/L 04/01/25 04/01/25 Range/Units 06:06 06:06 RBC 3.78 L (4.10-5.20) 10*6/uL Hgb 11.5 L (12.0-15.0) g/dL Hct 35.1 L (37.2-46.3) % Eosinophils # 0.47 H (0.04-0.35) 10*3/uL BUN 38 H (7-17) mg/dL Creatinine 1.44 H (0.52-1.04) mg/dL Glucose 119 H (74-99) mg/dL POC Glucose (mg/dL) (70-110) mg/dL AST 54 H (14-36) U/L Creatine Kinase (30-135) U/L Microbiology - Last 24 Hours (Table) 03/30/25 01:46 Blood Culture - Preliminary Blood Assessment and Plan Assessment: Acute kidney injury Underlying history of chronic kidney disease Underlying history of hypertension Underlying history of hyperlipidemia Acute metabolic acidosis Rhabdomyolysis Elevated troponin level Mental status changes with confusion This time patient was seen and examined Home medications reviewed and reordered Patient was started on IV heparin in the emergency room due to elevated troponi n, continue at this time cardiology consultation was requested Patient was started on IV fluid with bicarb, neurology was requested MRI EEG and 2D echo ordered Carotid Doppler ordered and ultrasound renal bladder and kidneys
[2025-04-01 11:23] LABS: Glucose,Whole Blood 144 mg/dL (70-110)
--- NOTE | 2025-04-01 14:44 | P.PN ---
Subjective Progress Note Date: 04/01/25 I am following up with the patient and she states she is doing well. No new neurological issues. Pending to have MRI later today. Objective - Vital Signs Vital signs: Vital Signs Temp 98.0 F 04/01/25 08:17 Pulse 62 04/01/25 11:33 Resp 18 04/01/25 11:33 BP 161/70 04/01/25 11:33 Pulse Ox 97 04/01/25 11:33 FiO2 Intake & Output 03/31/25 04/01/25 04/01/25 18:59 06:59 18:59 Intake Total 829.853 506 Output Total 500 300 Balance 329.853 206 Weight 74 kg Intake: Intake, IV Titration 235.853 Amount Heparin Sod,Pork in 0.45% 235.853 NaCl 25,000 unit In 0.45 % NaCl 1 250ml.bag @ 12 UNITS/KG/HR 9.12 mls/hr IV .Q24H [facility] Rx#: [id number] Oral 594 506 Output: Urine 500 300 Other: Voiding Method Toilet Toilet Toilet # Voids 3 1 - Exam GENERAL: The patient is sitting in a recliner chair and is not in acute distress. NEUROLOGICAL: Higher mental function: The patient is awake, alert, oriented to self, place and time. Patient is following commands. No aphasia and no neglect. Cranial nerves: The pupils are round, equal and reactive to light and accommodation. Visual cook are full to confrontation throughout. Extraocular movement is intact no nystagmus is noted. Facial sensation is normal to touch throughout. The facial strength is normal throughout. Hearing is normal bilaterally to hand rub. Tongue is midline and moved [id number] without any difficulty. No dysarthria is noted. Shoulder shrug is normal bilaterally. Motor: The strength is 5 over 5 throughout. Normal tone and bulk. Cerebellum: Normal finger to nose bilaterally. Sensation: Sensation is normal to touch throughout. Some of the workup during this hospital visit consisted of: Patient is afebrile Troponin got as high as high as 2.94 CK level is 425 Vitamin B12: 651 Serum folate: 17.1 Ammonia is less than 9 TSH is 1.370 Creatnine is 2.30--trending down CT of the head is reported as no acute intracranial hemorrhage, midline shift or mass effect. I personally reviewed the CT and agree with the report. Carotid duplex is reported as atheromatous plaquing present bilaterally. Narrowing less than 50% is present within the bilateral internal carotid artery. There are some focal stenosis of the right external carotid artery. EEG is abnormal. Background slowing is suggestive of mild encephalopathy. There is no focal slowing, OptiForm discharges or seizure on the EEG. 2D echo: LVEF 55%. - Labs CBC & Chem 7: 04/01/25 06:06 04/01/25 06:06 Labs: Abnormal Lab Results - Last 24 Hours (Table) 03/31/25 03/31/25 04/01/25 Range/Units 16:25 19:58 06:06 RBC 3.78 L (4.10-5.20) 10*6/uL Hgb 11.5 L (12.0-15.0) g/dL Hct 35.1 L (37.2-46.3) % Eosinophils # 0.47 H (0.04-0.35) 10*3/uL BUN (7-17) mg/dL Creatinine (0.52-1.04) mg/dL Glucose (74-99) mg/dL POC Glucose (mg/dL) 135 H 170 H (70-110) mg/dL AST (14-36) U/L 04/01/25 04/01/25 Range/Units 06:06 11:20 RBC (4.10-5.20) 10*6/uL Hgb (12.0-15.0) g/dL Hct (37.2-46.3) % Eosinophils # (0.04-0.35) 10*3/uL BUN 38 H (7-17) mg/dL Creatinine 1.44 H (0.52-1.04) mg/dL Glucose 119 H (74-99) mg/dL POC Glucose (mg/dL) 144 H (70-110) mg/dL AST 54 H (14-36) U/L Microbiology - Last 24 Hours (Table) 03/30/25 01:46 Blood Culture - Preliminary Blood Assessment and Plan Assessment: This is a 79-year-old woman who presents emergency department because of confusion. According to the [id number] she found her in the bathtub with a hot water running and she was not responding. In our ED her troponins elevated, she has acute kidney injury and CT of the head is unremarkable for any acute process. Altered mental status seems more metabolic encephalopathy. Rule out any acute or subacute stroke not seen on the CT especially with NSTEMI that can lead to strokes.--currently no focal deficit and mentation improved. EEG is negative for seizure or discharges. NSTEMI Right sided carotid bruit rule out severe stenosis Acute kidney injury--trending down Hypertension Hyperlipidemia Hypothyroidism History of thiamine deficiency Plan: Pending MRI Brain. Cardiology is on board and consider cath once kidney improve. Is on ASA 81mag and lipitor. Nephrology is consulted Will defer the rest of the medical management to primary and other specialist Plan discussed with the patient and her [id number] who is at bedside
--- NOTE | 2025-04-01 15:07 | P.PN ---
Subjective Patient is in for follow-up for acute kidney injury. Maintained on IV fluids. Renal function has improved with serum creatinine down to 1.8 mg/dL yesterday. Labs are pending from today No significant complaints Objective - Vital Signs Vital signs: Vital Signs Temp 98.0 F 04/01/25 08:17 Pulse 62 04/01/25 11:33 Resp 18 04/01/25 11:33 BP 161/70 04/01/25 11:33 Pulse Ox 97 04/01/25 11:33 FiO2 Intake & Output 03/31/25 04/01/25 04/01/25 18:59 06:59 18:59 Intake Total 829.853 506 Output Total 500 300 Balance 329.853 206 Weight 74 kg Intake: Intake, IV Titration 235.853 Amount Heparin Sod,Pork in 0.45% 235.853 NaCl 25,000 unit In 0.45 % NaCl 1 250ml.bag @ 12 UNITS/KG/HR 9.12 mls/hr IV .Q24H [facility] Rx#: [id number] Oral 594 506 Output: Urine 500 300 Other: Voiding Method Toilet Toilet Toilet # Voids 3 1 - Exam Patient is awake, comfortable No acute distress Examination of the heart S1 and S2 Examination of the lungs bilateral breath sounds are heard Abdomen is soft nontender Examination of lower extremities shows no significant edema [employer]MENT SERVICER exam grossly intact - Labs CBC & Chem 7: 04/01/25 06:06 04/01/25 06:06 Labs: Abnormal Lab Results - Last 24 Hours (Table) 03/31/25 03/31/25 04/01/25 Range/Units 16:25 19:58 06:06 RBC 3.78 L (4.10-5.20) 10*6/uL Hgb 11.5 L (12.0-15.0) g/dL Hct 35.1 L (37.2-46.3) % Eosinophils # 0.47 H (0.04-0.35) 10*3/uL BUN (7-17) mg/dL Creatinine (0.52-1.04) mg/dL Glucose (74-99) mg/dL POC Glucose (mg/dL) 135 H 170 H (70-110) mg/dL AST (14-36) U/L 06/06/25 06/06/25 Range/Units 06:06 11:20 RBC (4.10-5.20) 10*6/uL Hgb (12.0-15.0) g/dL Hct (37.2-46.3) % Eosinophils # (0.04-0.35) 10*3/uL BUN 38 H (7-17) mg/dL Creatinine 1.44 H (0.52-1.04) mg/dL Glucose 119 H (74-99) mg/dL POC Glucose (mg/dL) 144 H (70-110) mg/dL AST 54 H (14-36) U/L Microbiology - Last 24 Hours (Table) 03/30/25 01:46 Blood Culture - Preliminary Blood Assessment and Plan Assessment: 1. Acute kidney injury, most likely ATN. UA shows moderate blood and trace protein. If renal function does not continue to improve, serologies will be ordered to rule out possible underlying acute GN. JERMAIN inhibitors on hold and patient is maintained on IV fluids. Ultrasound does not show any evidence of obstruction 2. Chronic kidney disease stage III A most likely secondary to nephrosclerosis with baseline creatinine around 1.3 to 1.6 mg/dL 3. Syncope, undergoing workup. No evidence of hypotension 4. Hypertension maintained on JERMAIN inhibitors and calcium channel blockers 5. Hyperkalemia associated with acute kidney injury in the setting of use of JERMAIN inhibitors along with use of nonsteroidal anti-inflammatory agents 6. Nongap metabolic acidosis associated with acute kidney injury Plan: Continue with saline Follow-up on labs from today Repeat labs in a.m. Obtain serologies if renal function does not continue to improve over the next 1 to 2 days.
--- NOTE | 2025-04-01 15:55 | MR ---
INDICATION: Patient age:Female; 79 years old; Reason for study: ams; [facility]. COMPARISON: CT brain 03/29/2025. TECHNIQUE: Multi planar, multi sequence imaging was performed through the brain without the administr ation intravenous contrast. FINDINGS: Mild age-appropriate cerebral volume loss. The cardona-white junctions, ventricular system, basal cister ns appear unremarkable for patient age. Diffusion-weighted imaging shows no evidence of restricted di ffusion to suggest acute/subacute infarct. Intracranial arterial flow voids are maintained. Midline s tructures show no abnormality. Patchy areas of high T2/FLAIR signal intensity are seen within the per iventricular and subcortical white matter. Additional regions within the central hosea. The susceptibi lity weighted images do not reveal any evidence for micro-hemorrhage. The bone marrow signal is within normal limits. Minimal mucosal thickening of the inferior right maxi llary sinus. Mild mucosal thickening in the ethmoid sinuses. Minimal mucosal thickening of the fronta l sinuses. Bilateral aphakia. IMPRESSION: 1. No evidence of intracranial mass or acute/subacute infarct. 2. Nonspecific mild white matter changes, likely related to small vessel ischemic disease. Demyelinat ing disease, chronic migraines, vasculitis, Lyme disease are other considerations. [facility], , 04/01/2025 3:53 PM
--- NOTE | 2025-04-02 10:54 | P.PN ---
Subjective Progress Note Date: 04/02/25 Raiza Sneed, is a 79-year-old female who presented to [facility] emergency room with a chief complaint of mental status changes with confusion, patient states that she fell in the shower, at home, was not able to get up she was on the floor for 4 hours she was found by family member, when her family came in she was confused and was not able to recognize them, EMS were called and patient was brought into emergency room. She was evaluated in the emergency room vital examination on presentation revealed a temperature of 99.0 pulse 75 respiration 18 blood pressure 126/73 pulse ox 100% on room air Laboratory data revealed a white blood count of 12.14 hemoglobin 12.3 platelet count 357 sodium 135 potassium 5.9 BUN 47 creatinine 2.3 troponin level 0.369 Testing in the emergency room revealed no acute intracranial hemorrhage midline shift or mass effect seen on CT of head. Chest x-ray showing no consolidation. Patient was admitted to medical floor for further evaluation and treatment On 03/31/2025 patient is alert and oriented x 3. Patient remains on heparin drip for elevated troponins. MRI and EEG has been ordered per neurology services 2D echo has been ordered.Carotid Doppler completed. Creatinine improving to 1.82 bun 37. Creatinine kindness 1325 this is trending down. Patient denies chest pain or shortness of breath. Patient denies nausea vomiting or diarrhea. Patient denies any urinary burning or frequency. Current vital signs temp 98.3, heart 73, respiratory rate 16, blood pressure 123/53 with pulse ox of 97% on room air On 04/01/2025 patient is alert and oriented x 3. Patient denies chest pain or shortness of breath. Patient denies nausea vomiting or diarrhea. Patient denies any urinary burning or frequency. Current vital signs temp 98.0, heart 69, respiratory rate 18, blood pressure 149/69 with pulse ox of 95% on room air. Possible plans for heart catheterization per cardiology MRI still ordered per neurology. Creatinine 1.44 bun 38 04/02/2025 patient was seen and examined on the medical floor she is alert and o riented x 3 in no apparent distress, there is no fever or chills no headache or dizziness no chest pain no shortness of breath no cough no nausea or vomiting no abdominal pain no diarrhea no blood in the stools no burning with urination no frequency or urgency and no hematuria, function is improving gradually, are awaiting cardiology decision in regard to cardiac catheterization, continue to follow closely. Objective - Vital Signs Vital signs: Vital Signs Temp 98.2 F 04/02/25 03:55 Pulse 60 04/02/25 08:45 Resp 16 04/02/25 08:45 BP 151/54 04/02/25 08:45 Pulse Ox 94 L 04/02/25 08:45 FiO2 Intake & Output 04/01/25 04/02/25 04/02/25 18:59 06:59 18:59 Intake Total 624 240 Output Total 300 300 Balance 324 -300 240 Weight 74.1 kg Intake: Oral 624 240 Output: Urine 300 300 Other: Voiding Method Toilet Toilet Toilet # Voids 3 3 1 - Exam In general patient is alert and oriented x 3 in no distress HEENT head normocephalic and atraumatic Neck is supple no JVD no goiter no lymphadenopathy no carotid bruit Chest examination is clear to auscultation no crackles no wheezing Cardiac exam reveals regular heart sounds S1 and S2 no gallops no murmurs Abdomen is soft nontender no organomegaly with normal bowel sounds Extremity exam reveals no edema no cyanosis or clubbing Neurological examination reveals no gross focal deficits - Labs CBC & Chem 7: 04/01/25 06:06 04/01/25 06:06 Labs: Abnormal Lab Results - Last 24 Hours (Table) 04/01/25 Range/Units 11:20 POC Glucose (mg/dL) 144 H (70-110) mg/dL Microbiology - Last 24 Hours (Table) 03/30/25 01:46 Blood Culture - Preliminary Blood Assessment and Plan Plan: Acute kidney injury Underlying history of chronic kidney disease Underlying history of hypertension Underlying history of hyperlipidemia Acute metabolic acidosis Rhabdomyolysis Elevated troponin level Mental status changes with confusion This time patient was seen and examined Home medications reviewed and reordered Patient was started on IV heparin in the emergency room due to elevated troponin, continue at this time cardiology consultation was requested Patient was started on IV fluid with bicarb, neurology was requested MRI EEG and 2D echo ordered Carotid Doppler ordered and ultrasound renal bladder and kidneys Will continue to follow closely
--- NOTE | 2025-04-02 12:15 | P.PN ---
Subjective Patient is in for follow-up for acute kidney injury. Maintained on IV fluids. Renal function has improved with serum creatinine down to 1.4 Tolerating oral intake. No significant complaints Objective - Vital Signs Vital signs: Vital Signs Temp 98.2 F 04/02/25 03:55 Pulse 60 04/02/25 08:45 Resp 16 04/02/25 08:45 BP 151/54 04/02/25 08:45 Pulse Ox 94 L 04/02/25 08:45 FiO2 Intake & Output 04/01/25 04/02/25 04/02/25 18:59 06:59 18:59 Intake Total 624 240 Output Total 300 300 Balance 324 -300 240 Weight 74.1 kg Intake: Oral 624 240 Output: Urine 300 300 Other: Voiding Method Toilet Toilet Toilet # Voids 3 3 1 - Exam Patient is awake, comfortable No acute distress Examination of the heart S1 and S2 Examination of the lungs bilateral breath sounds are heard Abdomen is soft nontender Examination of lower extremities shows no 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 Acute kidney injury, most likely ATN. UA shows moderate blood and trace protein. No previous UA available for comparison. If renal function does not continue to improve, serologies will be ordered to rule out possible underlying acute GN. JERMAIN inhibitors on hold and patient is maintained on IV fluids. Ultrasound does not show any evidence of obstruction 2. Chronic kidney disease stage III A most likely secondary to nephrosclerosis with baseline creatinine around 1.3 to 1.6 mg/dL 3. Syncope, undergoing workup. No evidence of hypotension 4. Hypertension maintained on JERMAIN inhibitors and calcium channel blockers 5. Hyperkalemia associated with acute kidney injury in the setting of use of JERMAIN inhibitors along with use of nonsteroidal anti-inflammatory agents 6. Nongap metabolic acidosis associated with acute kidney injury Plan: Continue with saline Follow-up on labs from today Repeat labs in a.m. Obtain serologies if renal function does not continue to improve over the next 1 to 2 days.
[2025-04-02 13:59] LABS: African American GFR (CKD) 44 (>60 ml/min/1.73 sqM); Anion Gap 8 mmol/L; Blood Urea Nitrogen 30 mg/dL (7-17); Calcium 9.7 mg/dL (8.4-10.2); Carbon Dioxide 26 mmol/L (22-30); Chloride 107 mmol/L (98-107); Glucose 130 mg/dL (74-99); Non-African American GFR(CKD) 38 (>60 ml/min/1.73 sqM); Potassium 4.7 mmol/L (3.5-5.1); Sodium 141 mmol/L (137-145)
--- NOTE | 2025-04-02 15:34 | P.PN ---
Subjective Progress Note Date: 04/02/25 I am following with the patient and denies any new neurological issues. Objective - Vital Signs Vital signs: Vital Signs Temp 98.2 F 04/02/25 03:55 Pulse 66 04/02/25 12:00 Resp 16 04/02/25 12:00 BP 148/75 04/02/25 12:00 Pulse Ox 95 04/02/25 12:00 FiO2 Intake & Output 04/01/25 04/02/25 04/02/25 18:59 06:59 18:59 Intake Total 624 360 Output Total 300 300 800 Balance 324 -300 -440 Weight 74.1 kg Intake: Oral 624 360 Output: Urine 300 300 800 Other: Voiding Method Toilet Toilet Toilet # Voids 3 3 1 - Exam GENERAL: The patient is sitting in a recliner chair and is not in acute distress. NEUROLOGICAL: Higher mental function: The patient is awake, alert, oriented to self, place and time. Patient is following commands. No aphasia and no neglect. Cranial nerves: The pupils are round, equal and reactive to light and ac commodation. Visual cook are full to confrontation throughout. Extraocular movement is intact no nystagmus is noted. Facial sensation is normal to touch throughout. The facial strength is normal throughout. Hearing is normal bilaterally to hand rub. Tongue is midline and moved [id number] without any difficulty. No dysarthria is noted. Shoulder shrug is normal bilaterally. Motor: The strength is 5 over 5 throughout. Normal tone and bulk. Cerebellum: Normal finger to nose bilaterally. Sensation: Sensation is normal to touch throughout. Some of the workup during this hospital visit consisted of: Patient is afebrile Troponin got as high as high as 2.94 CK level is 425 Vitamin B12: 651 Serum folate: 17.1 Ammonia is less than 9 TSH is 1.370 Creatnine is 2.30--trending down CT of the head is reported as no acute intracranial hemorrhage, midline shift or mass effect. I personally reviewed the CT and agree with the report. Carotid duplex is reported as atheromatous plaquing present bilaterally. Narrowing less than 50% is present within the bilateral internal carotid artery. There are some focal stenosis of the right external carotid artery. EEG is abnormal. Background slowing is suggestive of mild encephalopathy. There is no focal slowing, OptiForm discharges or seizure on the EEG. 2D echo: LVEF 55%. MRI Brain: Is no evidence of intracranial mass or acute/subacute infarct. - Labs CBC & Chem 7: 04/01/25 06:06 04/02/25 13:08 Labs: Abnormal Lab Results - Last 24 Hours (Table) 04/02/25 Range/Units 13:08 BUN 30 H (7-17) mg/dL Creatinine 1.35 H (0.52-1.04) mg/dL Glucose 130 H (74-99) mg/dL Microbiology - Last 24 Hours (Table) 03/30/25 01:46 Blood Culture - Preliminary Blood Assessment and Plan Assessment: This is a 79-year-old woman who presents emergency department because of confusion. According to the [id number] she found her in the bathtub with a hot water running and she was not responding. In our ED her troponins elevated, she has acute kidney injury and CT of the head is unremarkable for any acute process. Altered mental status seems more metabolic encephalopathy--mentation improved EEG is negative for seizure or discharges. MRI Brain is negative for acute process. NSTEMI Right sided carotid bruit rule out severe stenosis Acute kidney injury--trending down Hypertension Hyperlipidemia Hypothyroidism History of thiamine deficiency Plan: Cardiology is on board and consider cath once kidney improve. Is on ASA 81mag and lipitor. Nephrology is consulted Will defer the rest of the medical management to primary and other specialist There is no further neurological work-up. Will sign off. Please reconsult if needed. Time with Patient: Less than 30
--- NOTE | 2025-04-02 18:59 | P.PN ---
Subjective Progress Note Date: 04/02/25 History of present illness: This is 79-year-old female with past medical history of hypertension, hyperl ipidemia, hypothyroidism. We have been asked to evaluate the patient for elevated troponins. 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 Patient states that she was in the shower and had a slip and fall. She states she sometimes gets dizzy when she gets up. She states she has been eating and d rinking okay. She denies any fever or chills and no cough. Patient states that she was on the ground for about 4 hours. Patient states that she did have trouble with her memory but more so finding words and had a history of TIA years ago. She denies any chest pain or chest pressure. No pain into her neck or arms. She denies lower extremity edema. She denies history of smoking. No alcohol abuse. Blood pressure 167/72, heart rate 78, pulse ox 100% on room air. Patient has been started on heparin drip and also was given dose of IV ceftriaxone. Patient seen in the ER waiting for bed on the cardiac stepdown unit. Dr. Madrigal discussed with patient findings and recommendations for a le ft heart catheterization but due to abnormal kidney function this will have to be carefully planned. Nephrology is on consult. -EKG: Sinus rhythm with right bundle branch block -Chest x-ray: No consolidation. -CT brain: No acute intracranial hemorrhage, midline shift or mass effect. -Laboratory studies: Troponin 0.369, 2.94. WBC 12.1, hemoglobin 12.3, sodium 135, potassium 5.9, BUN 47 creatinine 2.3. Urine drug screen negative. -Home cardiac medications: Amlodipine 5 mg at bedtime, benazepril 40 mg at bedtime, simvastatin 10 mg at bedtime, also on levothyroxine. 03/31 Patient seen and examined on the cardiac stepdown unit. Blood pressure 156/69, heart rate 62, pulse ox 97% on room air. Repeat blood work reveals WBC 8, hemoglobin 9.7, sodium 136, BUN 37, creatinine 1.82, potassium 3.8. CK 1325. Echocardiogram is taken report is pending. Patient has been continued on heparin drip which we will decide whether this can be discontinued after the echocardiogram has been reported. Carotid ultrasound revealed narrowing less than 50% in bilateral internal carotid arteries. Triglycerides 74, cholesterol 182, LDL 100. TSH 1.37. Hemoglobin A1c is 6.8. 04/01 Patient seen and examined. Blood pressure readings have been elevated for which amlodipine will be increased. Patient is off heparin drip. Echocardiogram reveals EF of 55%, mild concentric LVH, no significant valvular dysfunction. Discussed possibility of cardiac catheterization or stress test. Patient does not seem to be interested in moving forward with this at this time. Her kidney function remains elevated. Today's lab work is not available at the time of this dictation. 04/02/2025 Noticed to be slightly hypertensive. Denies any active chest pain chest pressure shortness of breath. Telemetry shows sinus rhythm Physical examination: Gen: This is 79-year-old female in no acute distress VS: reviewed HEENT: Head is atraumatic, normocephalic. Pupils equal, round. Sclerae is anicteric. NECK: Supple. No JVD. Right sided carotid bruit. LUNGS: Clear to auscultation. No wheezes or rhonchi. No intercostal re tractions. HEART: Regular rate and rhythm. No murmur. ABDOMEN: Soft No tenderness. EXTREMITIES: No pedal edema. No calf tenderness. NEUROLOGICAL: Patient is awake, alert and oriented x3. Assessment: Elevated troponin likely type II NSTEMI in setting of rhabdomyolysis and poor renal clearance Acute kidney injury Mental status changes with difficulty word finding Fall Rhabdomyolysis Right-sided carotid bruit suspect carotid artery disease Hypertension Hyperlipidemia Hypothyroidism Plan: Continue patient on aspirin, atorvastatin, Coreg Increase amlodipine to 10 mg daily for blood pressure control Consider outpatient stress testing Start losartan 50 mg daily for elevated blood pressure Monitor kidney function electrolytes tomorrow If kidney function electrolytes and blood pressure normal tomorrow, consider clearing from cardiology Objective - Vital Signs Vital signs: Vital Signs Temp 98.2 F 04/02/25 03:55 Pulse 66 04/02/25 17:14 Resp 16 04/02/25 17:14 BP 173/75 04/02/25 17:14 Pulse Ox 99 04/02/25 17:14 FiO2 Intake & Output 04/01/25 04/02/25 04/02/25 18:59 06:59 18:59 Intake Total 624 480 Output Total 731 626 9715 Balance 324 300 -920 Weight 74.1 kg Intake: Oral 624 480 Output: Urine 435 617 7705 Other: Voiding Method Toilet Toilet Toilet # Voids 3 3 1 - Labs CBC & Chem 7: 04/01/25 06:06 04/02/25 13:08 Labs: Abnormal Lab Results - Last 24 Hours (Table) 04/02/25 04/02/25 Range/Units 13:08 13:08 BUN 30 H (7-17) mg/dL Creatinine 1.35 H (0.52-1.04) mg/dL Glucose 130 H (74-99) mg/dL Magnesium 1.4 L (1.6-2.3) mg/dL Microbiology - Last 24 Hours (Table) 03/30/25 01:46 Blood Culture - Preliminary Blood
[2025-04-02] MEDS: LOSARTAN 50 MG TAB PO SCH (20:20)
[2025-04-03 08:19] LABS: African American GFR (CKD) 50 (>60 ml/min/1.73 sqM); Anion Gap 9 mmol/L; Blood Urea Nitrogen 23 mg/dL (7-17); Calcium 9.9 mg/dL (8.4-10.2); Carbon Dioxide 22 mmol/L (22-30); Chloride 110 mmol/L (98-107); Glucose 123 mg/dL (74-99); Non-African American GFR(CKD) 44 (>60 ml/min/1.73 sqM); Potassium 4.4 mmol/L (3.5-5.1); Sodium 141 mmol/L (137-145)
--- NOTE | 2025-04-03 09:11 | P.DS ---
Providers Date of admission: 03/30/25 04:58 Expected date of discharge: 04/03/25 Attending physician: Alexa Chapman Consults: 03/30/25 04:55 Consult Physician Routine Consulting Provider: Jake Painting Consult Reason/Comments: altered mental status Do you want consulting provider notified?: Yes Consult Physician Routine Consulting Provider: Madhu Holt Consult Reason/Comments: elevated troponin Do you want consulting provider notified?: Yes 03/30/25 06:44 Consult Physician Routine Consulting Provider: Melanie Gordon Consult Reason/Comments: acute kidney injury Do you want consulting provider notified?: Yes Primary care physician: Cyndi Gamboa Hospital Course: Discharge diagnosis Acute kidney injury Underlying history of chronic kidney disease Underlying history of hypertension Underlying history of hyperlipidemia Acute metabolic acidosis Rhabdomyolysis Elevated troponin level Mental status changes with confusion Hospital course Raiza Sneed, is a 79-year-old female who presented to [facility] emergency room with a chief complaint of mental status changes with confusion, patient states that she fell in the shower, at home, was not able to get up she was on the floor for 4 hours she was found by family member, when her family came in she was confused and was not able to recognize them, EMS were called and patient was brought into emergency room. She was evaluated in the emergency room vital examination on presentation revealed a temperature of 99.0 pulse 75 respiration 18 blood pressure 126/73 pulse ox 100% on room air Laboratory data revealed a white blood count of 12.14 hemoglobin 12.3 platelet count 357 sodium 135 potassium 5.9 BUN 47 creatinine 2.3 troponin level 0.369 Testing in the emergency room revealed no acute intracranial hemorrhage midline shift or mass effect seen on CT of head. Chest x-ray showing no consolidation. Patient was admitted to medical floor for further evaluation and treatment On 03/31/2025 patient is alert and oriented x 3. Patient remains on heparin drip for elevated troponins. MRI and EEG has been ordered per neurology services 2D echo has been ordered.Carotid Doppler completed. Creatinine improving to 1.82 bun 37. Creatinine kindness 1325 this is trending down. Patient denies chest pain or shortness of breath. Patient denies nausea vomiting or diarrhea. Patient denies any urinary burning or frequency. Current vital signs temp 98.3, heart 73, respiratory rate 16, blood pressure 123/53 with pulse ox of 97% on room air On 04/01/2025 patient is alert and oriented x 3. Patient denies chest pain or shortness of breath. Patient denies nausea vomiting or diarrhea. Patient denies any urinary burning or frequency. Current vital signs temp 98.0, heart 69, respiratory rate 18, blood pressure 149/69 with pulse ox of 95% on room air. Possible plans for heart catheterization per cardiology MRI still ordered per neurology. Creatinine 1.44 bun 38 04/02/2025 patient was seen and examined on the medical floor she is alert and oriented x 3 in no apparent distress, there is no fever or chills no headache or dizziness no chest pain no shortness of breath no cough no nausea or vomiting no abdominal pain no diarrhea no blood in the stools no burning with urination no frequency or urgency and no hematuria, function is improving gradually, are awaiting cardiology decision in regard to cardiac catheterization, continue to follow closely. On 04/03/2025 patient is alert and oriented x 3. Patient eager to be DC'd home. Creatinine today improving to1.21 and bun 23. Blood pressure also improved 134/76. Patient will be DC'd home follow-up with cardiology services for possible outpatient stress test. Patient was started on new blood pressure medications to follow-up with PCP for further management. Patient denies chest pain or shortness of breath. Patient denies nausea vomiting or diarrhea. Patient denies any urinary burning or frequency Patient Condition at Discharge: Stable Plan - Discharge Summary Discharge Rx Participant: Yes New Discharge Prescriptions: New carvediloL [Coreg] 6.25 mg PO BID-W/MEALS 30 Days #60 tab Losartan [Cozaar] 50 mg PO DAILY 30 Days #30 tab amLODIPine [Norvasc] 10 mg PO DAILY 30 Days #30 tab Aspirin 81 mg PO DAILY 30 Days #30 tab Continue Simvastatin [Zocor] 10 mg PO HS Levothyroxine Sodium [Synthroid] 75 mcg PO HS Discontinued amLODIPine [Norvasc] 5 mg PO HS Benazepril HCl 40 mg PO HS Discharge Medication List Levothyroxine Sodium [Synthroid] 75 mcg PO HS 03/30/25 [History] Simvastatin [Zocor] 10 mg PO HS 03/30/25 [History] Aspirin 81 mg PO DAILY 30 Days #30 tab 04/03/25 [Rx] Losartan [Cozaar] 50 mg PO DAILY 30 Days #30 tab 04/03/25 [Rx] amLODIPine [Norvasc] 10 mg PO DAILY 30 Days #30 tab 04/03/25 [Rx] carvediloL [Coreg] 6.25 mg PO BID-W/MEALS 30 Days #60 tab 04/03/25 [Rx] Follow up Appointment(s)/Referral(s): Cyndi Gamboa MD [Primary Care Provider] - 1-2 days Jono Madrigal DO [STAFF PHYSICIAN] - 1 Week Activity/Diet/Wound Care/Special Instructions: Activity as tolerated Diet heart healthy Discharge Disposition: HOME SELF-CARE
[2025-04-03] MEDS ORDERED: Magnesium Replacement Protocol 1 EACH MISC MISCELLANE PRN (09:36)
--- NOTE | 2025-04-03 09:59 | P.PN ---
Subjective Progress Note Date: 04/03/25 History of present illness: This is 79-year-old female with past medical history of hypertension, hyperl ipidemia, hypothyroidism. We have been asked to evaluate the patient for elevated troponins. 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 Patient states that she was in the shower and had a slip and fall. She states she sometimes gets dizzy when she gets up. She states she has been eating and d rinking okay. She denies any fever or chills and no cough. Patient states that she was on the ground for about 4 hours. Patient states that she did have trouble with her memory but more so finding words and had a history of TIA years ago. She denies any chest pain or chest pressure. No pain into her neck or arms. She denies lower extremity edema. She denies history of smoking. No alcohol abuse. Blood pressure 167/72, heart rate 78, pulse ox 100% on room air. Patient has been started on heparin drip and also was given dose of IV ceftriaxone. Patient seen in the ER waiting for bed on the cardiac stepdown unit. Dr. Madrigal discussed with patient findings and recommendations for a le ft heart catheterization but due to abnormal kidney function this will have to be carefully planned. Nephrology is on consult. -EKG: Sinus rhythm with right bundle branch block -Chest x-ray: No consolidation. -CT brain: No acute intracranial hemorrhage, midline shift or mass effect. -Laboratory studies: Troponin 0.369, 2.94. WBC 12.1, hemoglobin 12.3, sodium 135, potassium 5.9, BUN 47 creatinine 2.3. Urine drug screen negative. -Home cardiac medications: Amlodipine 5 mg at bedtime, benazepril 40 mg at bedtime, simvastatin 10 mg at bedtime, also on levothyroxine. 03/31 Patient seen and examined on the cardiac stepdown unit. Blood pressure 156/69, heart rate 62, pulse ox 97% on room air. Repeat blood work reveals WBC 8, hemoglobin 9.7, sodium 136, BUN 37, creatinine 1.82, potassium 3.8. CK 1325. Echocardiogram is taken report is pending. Patient has been continued on heparin drip which we will decide whether this can be discontinued after the echocardiogram has been reported. Carotid ultrasound revealed narrowing less than 50% in bilateral internal carotid arteries. Triglycerides 74, cholesterol 182, LDL 100. TSH 1.37. Hemoglobin A1c is 6.8. 04/01 Patient seen and examined. Blood pressure readings have been elevated for which amlodipine will be increased. Patient is off heparin drip. Echocardiogram reveals EF of 55%, mild concentric LVH, no significant valvular dysfunction. Discussed possibility of cardiac catheterization or stress test. Patient does not seem to be interested in moving forward with this at this time. Her kidney function remains elevated. Today's lab work is not available at the time of this dictation. 04/02/2025 Noticed to be slightly hypertensive. Denies any active chest pain chest pressure shortness of breath. Telemetry shows sinus rhythm 04/03/2025 Doing well from cardiovascular standpoint. Hemodynamically stable. Denies any lightheadedness dizziness. Blood pressure is better controlled with addition of losartan. Physical examination: HEENT: Head is atraumatic, normocephalic. Pupils equal, round. Sclerae is anicteric. NECK: Supple. No JVD. Right sided carotid bruit. LUNGS: Clear to auscultation. No wheezes or rhonchi. No intercostal retractions. HEART: Regular rate and rhythm. No murmur. ABDOMEN: Soft No tenderness. EXTREMITIES: No pedal edema. No calf tenderness. NEUROLOGICAL: Patient is awake, alert and oriented x3. Assessment: Elevated troponin likely type II NSTEMI in setting of rhabdomyolysis and poor renal clearance Acute kidney injury Mental status changes with difficulty word finding Fall Rhabdomyolysis Right-sided carotid bruit suspect carotid artery disease Hypertension Hyperlipidemia Hypothyroidism Plan: Continue patient on aspirin, atorvastatin, Coreg Increase amlodipine to 10 mg daily for blood pressure control Consider outpatient stress testing Started losartan 50 mg daily for elevated blood pressure Consider event monitor and a Lexiscan nuclear stress test on outpatient basis Follow with Dr. Madrigal. Cleared from cardiovascular standpoint at this time Objective - Vital Signs Vital signs: Vital Signs Temp 97.9 F 04/03/25 07:37 Pulse 58 L 04/03/25 07:37 Resp 20 04/03/25 07:37 BP 134/76 04/03/25 07:37 Pulse Ox 97 04/03/25 07:37 FiO2 Intake & Output 04/02/25 04/03/25 04/03/25 18:59 06:59 18:59 Intake Total 480 240 Output Total 1400 300 600 Balance -920 -300 -360 Weight 76.7 kg Intake: Oral 480 240 Output: Urine 1400 300 600 Other: Voiding Method Toilet Toilet # Voids 1 3 - Labs CBC & Chem 7: 04/01/25 06:06 04/03/25 07:22 Labs: Abnormal Lab Results - Last 24 Hours (Table) 04/02/25 04/02/25 04/03/25 Range/Units 13:08 13:08 07:22 Chloride 110 H (98-107) mmol/L BUN 30 H 23 H (7-17) mg/dL Creatinine 1.35 H 1.21 H (0.52-1.04) mg/dL Glucose 130 H 123 H (74-99) mg/dL Magnesium 1.4 L (1.6-2.3) mg/dL 04/03/25 Range/Units 07:22 Chloride (98-107) mmol/L BUN (7-17) mg/dL Creatinine (0.52-1.04) mg/dL Glucose (74-99) mg/dL Magnesium 1.3 L (1.6-2.3) mg/dL Microbiology - Last 24 Hours (Table) 03/30/25 01:46 Blood Culture - Preliminary Blood
[2025-04-03] MEDS: MAGNESIUM SULFATE-D5W PMX 1 GM in DEXTROSE/WATER 1 100ML.BAG IVPB SCH (10:11)
[2025-04-03 11:27] VITALS: RESP 16
--- NOTE | 2025-04-03 12:36 | P.PN ---
Subjective Patient is in for follow-up for acute kidney injury. Maintained on IV fluids. Renal function has improved with serum creatinine down to 1.2 Tolerating oral intake. No significant complaints Objective - Vital Signs Vital signs: Vital Signs Temp 98.2 F 04/03/25 11:26 Pulse 58 L 04/03/25 11:26 Resp 16 04/03/25 11:26 BP 167/58 04/03/25 11:26 Pulse Ox 100 04/03/25 11:26 FiO2 Intake & Output 04/02/25 04/03/25 04/03/25 18:59 06:59 18:59 Intake Total 480 370 Output Total 1400 300 600 Balance -920 -300 -230 Weight 76.7 kg Intake: IV 10 Invasive Line 2 10 Oral 480 360 Output: Urine 1400 300 600 Other: Voiding Method Toilet Toilet Toilet # Voids 1 3 - Exam Patient is awake, comfortable No acute distress Examination of the heart S1 and S2 Examination of the lungs bilateral breath sounds are heard Abdomen is soft nontender Examination of lower extremities shows 1+ edema BUILDING SERVICES COORDINATOR exam grossly intact - Labs CBC & Chem 7: 04/01/25 06:06 04/03/25 07:22 Labs: Abnormal Lab Results - Last 24 Hours (Table) 04/02/25 04/02/25 04/03/25 Range/Units 13:08 13:08 07:22 Chloride 110 H (98-107) mmol/L BUN 30 H 23 H (7-17) mg/dL Creatinine 1.35 H 1.21 H (0.52-1.04) mg/dL Glucose 130 H 123 H (74-99) mg/dL Magnesium 1.4 L (1.6-2.3) mg/dL 04/03/25 Range/Units 07:22 Chloride (98-107) mmol/L BUN (7-17) mg/dL Creatinine (0.52-1.04) mg/dL Glucose (74-99) mg/dL Magnesium 1.3 L (1.6-2.3) mg/dL Microbiology - Last 24 Hours (Table) 03/30/25 01:46 Blood Culture - Preliminary Blood Assessment and Plan Assessment: 1. Acute kidney injury, most likely ATN. UA shows moderate blood and trace protein. No previous UA available for comparison. JERMAIN inhibitors on hold and patient is maintained on IV fluids. Ultrasound does not show any evidence of obstruction 2. Chronic kidney disease stage III A most likely secondary to nephrosclerosis with baseline creatinine around 1.3 to 1.6 mg/dL 3. Syncope, undergoing workup. No evidence of hypotension 4. Hypertension maintained on JERMAIN inhibitors and calcium channel blockers 5. Hyperkalemia associated with acute kidney injury in the setting of use of JERMAIN inhibitors along with use of nonsteroidal anti-inflammatory agents 6. Nongap metabolic acidosis associated with acute kidney injury Plan: DC IV fluids Stable for discharge from nephrology standpoint. Follow-up as outpatient for CKD
[2025-04-03] MEDS: FUROSEMIDE 10 MG/ML 4 ML VIAL IV ONE (12:48)
[2025-04-03 15:17] VITALS: BP 152/75; PULSE 51; TEMP 97.9
--- NOTE | 2025-04-14 09:45 | CDI ---
Documentation Clarification Form Date: 04/14/2025 09:31:42 AM From: Sujatha Ochoa Phone: Admit Date: 03/30/2025 04:58:00 AM Patient Name: Raiza Sneed Visit Number: [id number] Discharge Date: 04/03/2025 03:59:00 PM ATTENTION: The Clinical Documentation Specialists (CDI) and [facility] Coding Staff appreciate your assistance in clarifying documentation. Please respond to the clarification below the line at the bottom and electronically sign. The CDI & [facility] Coding staff will review the response and follow-up if needed. Please note: Queries are made part of the Legal Health Record. If you have any questions, please contact the author of this message via ITS. Doctor/Provider: Alexa Chapman Rhabdomyolysis is documented throughout the Progress Notes. Additional clarification regarding the type of rhabdomyolysis is requested. History/Risk Factors: 79yo F, DEEJAY, DMII w CKD IIIA, HTN, HLD, acute metabolic acidosis, rhabdo, met enceph, NSTEMII, syncope in shower at home Clinical Indicatorsmental status changes,confusionandhistory of fallin the shower. EMS was called by her [id number] as they noticed that she had beenconfused. Patient apparently went into the shower and states that she passed out. She does not remember exactly what happened until she woke up with EMS. Bloodpressureis not low. Patient is maintained on JERMAIN inhibitors at home Treatment: monitored Please clarify the type of rhabdomyolysis, if known: [ xxx] Traumatic rhabdomyolysis due to fall [ ] Traumatic rhabdomyolysis due to prolonged immobility [ ] Non traumatic rhabdomyolysis due to medication (please specify) [ ] Other, please specify [ ] Unable to Determine (Template Last Revised: December 2020) MTDD
== END 2025-04-03 15:59 | disposition home or self-care (01) | DRG 682 ==
LOC: EC 22:42 → 3SCARD 03-30 04:58
PROVIDERS: ADMIT Internal Medicine; ATTEND Internal Medicine
DX: N17.0 Acute kidney failure with tubular necrosis (principal); G93.41 Metabolic encephalopathy; I21.A1 Myocardial infarction type 2; E87.21 Acute metabolic acidosis; T79.6XXA Traumatic ischemia of muscle, initial encounter; N18.31 Chronic kidney disease, stage 3a; E11.22 Type 2 diabetes mellitus with diabetic chronic kidney disease; I12.9 Hypertensive chronic kidney disease with stage 1 through stage 4 chronic kidney disease, or unspecified chronic kidney disease; E03.9 Hypothyroidism, unspecified; I65.21 Occlusion and stenosis of right carotid artery; E51.9 Thiamine deficiency, unspecified; E87.5 Hyperkalemia; E78.00 Pure hypercholesterolemia, unspecified; R09.89 Other specified symptoms and signs involving the circulatory and respiratory systems; W18.2XXA Fall in (into) shower or empty bathtub, initial encounter; Y93.E1 Activity, personal bathing and showering; Z79.890 Hormone replacement therapy; Z79.899 Other long term (current) drug therapy; Z86.73 Personal history of transient ischemic attack (TIA), and cerebral infarction without residual deficits; Y92.012 Bathroom of single-family (private) house as the place of occurrence of the external cause; Z79.82 Long term (current) use of aspirin
CPT/HCPCS: 36415; 70450; 70551; 71046; 76770; 80048; 80053; 80061; 80306; 80320; 81001; 82140; 82550; 82552; 82607; 82746; 83036; 83735; 84443; 84484; 85025; 85610; 85730; 87040; 93005; 93306; 93880; 95816; 96361; 96365; 96366; 96367; 99285